=== PATIENT | male | born 1960 | race Caucasian/White ===

== ENCOUNTER 2018-10-13 20:42 | Emergency (ER) | payer OTHER, MEDICAID, SELFPAY ==
[2018-10-13 20:42] VITALS: BP 130/72; PULSE 83; RESP 15; O2SAT 96; BMI 30.4
--- NOTE | 2018-10-13 20:48 | ED_ITS ---
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 He admits to subjective fever and chills. He denies any runny nose or cough. He denies shortness of breath, nausea or vomiting. MD complaint: neck pain Onset (ago): day(s) Place: home Quality: aching Duration: constant Exacerbating factors: swallowing Associated symptoms: fever and swollen glands Treatments prior to arrival: acetaminophen and ibuprofen Related Data Home Medications Medication Instructions Recorded Confirmed [OXYCODONE] 20 mg PO SEE INSTRUCTIONS #0 05/24/11 albuterol sulfate [Proventil HFA] 2 puff INH PRN #8.5 gm 05/24/11 alprazolam [Xanax] 0.5 mg PO HS #0 05/24/11 ipratropium-albuterol 3 ml INH PRN #0 05/24/11 Previous Rx's Medication Instructions Recorded azithromycin 500 mg PO DAILY 5 Days tab 10/13/18 Allergies Allergy/AdvReac Type Severity Reaction Status Date / Time Penicillins Allergy Verified 10/13/18 20:45 Sulfa (Sulfonamide Allergy Verified 10/13/18 20:45 Antibiotics) Review of Systems Constitutional Constitutional: Denies chills, Denies fatigue, Denies fever(s), Denies frequent falls, Denies lethargy and Denies weakness Eyes Eyes: Denies change in vision, Denies eye discharge, Denies irritation and Denies loss of vision ENT Ears, Nose, Mouth, and Throat: Denies change in voice, Denies dizziness, Reports neck pain, Reports sore throat and Reports throat swelling Cardiovascular Cardiovascular: Denies chest pain, Denies irregular heart rhythm, Denies lightheadedness, Denies palpitations, Denies dyspnea, Denies dyspnea on exertion and Denies orthopnea Respiratory Respiratory: Denies cough, Denies dyspnea, Denies dyspnea on exertion and Denies wheezing Gastrointestinal Gastrointestinal: Denies abdominal pain, Denies change in bowel habits, Denies diarrhea, Denies nausea and Denies vomiting Genitourinary Genitourinary: Denies hematuria, Denies flank pain, Denies urinary incontinence and Denies urinary urgency Musculoskeletal Musculoskeletal: Denies back pain, Denies muscle weakness, Reports neck pain, Denies numbness and Denies tingling Integumentary/Breasts Skin/Breast: Denies pruritus, Denies erythema, Denies rash and Denies wounds Neurologic Neurologic: Denies behavioral changes, Denies confusion, Denies dizziness, Denies frequent falls, Denies loss of vision, Denies numbness, Denies tingling and Denies weakness Psychiatric Psychiatric: Denies anxiety, Denies behavioral changes, Denies confusion, Denies depression, Denies homicidal ideation and Denies suicidal ideation Endocrine Endocrine: Denies fatigue, Denies flushing and Denies palpitations Hematologic/Lymphatic Hematologic/Lymphatic: Denies easy bruising Allergic/Immunologic Allergic/Immunologic: Denies urticaria, Reports throat swelling and Denies wheezing PFSH Social History Smoking Status: Current every day smoker Social History Smoking Status: Current every day smoker Exam Narrative Exam Narrative: GENERAL: [58] year old patient appears stated age. Well- nourished, well-developed patient, in mild distress. Anxious HEAD: Atraumatic. Normocephalic. EYES: Pupils equal round and reactive. Extraocular motions intact. No scleral icterus. No injection or drainage. ENT: Nose without bleeding, purulent drainage. Posterior pharynx erythematous with notable exudate on the left side. Left anterior cervical lymphadenopathy. No evidence of abscess such as mass or pointing uvula. Poor dentition throughout NECK: Trachea midline. Non tender CARDIOVASCULAR: Regular rate and rhythm without murmurs, gallops, or rubs. RESPIRATORY: Clear to auscultation. Breath sounds equal bilaterally. No wheezes, rales, or rhonchi. GASTROINTESTINAL: Abdomen soft, non-tender, nondistended. EXTREMITIES: No edema or joint tenderness. BACK: Nontender without deformity or crepitance. No flank tenderness. NEURO: AOx3. SKIN: No rash or erythema of visible areas Initial Vital Signs Initial Vital Signs: Vital Signs Pulse Rate 83 10/13/18 20:42 Respiratory Rate 15 10/13/18 20:42 Blood Pressure 130/72 10/13/18 20:42 Pulse Oximetry 96 10/13/18 20:42 Course Orders Ordered: ED Orders 10/13/18 21:25 Throat Culture Stat 10/13/18 21:30 Monotest Stat Discontinued Medications Azithromycin (Zithromax) 500 mg PO NOW ONE Stop: 10/13/18 22:00 Last Admin: 10/13/18 22:26 Dose: 500 mg Documented by: DINESH Dexamethasone (Decadron) 10 mg PO NOW ONE Stop: 10/13/18 22:00 Last Admin: 10/13/18 22:26 Dose: 10 mg Documented by: DINESH Vital Signs Vital signs: Vital Signs - 8 hr 10/13/18 20:42 10/13/18 21:36 10/13/18 22:03 Pulse Rate 83 76 73 Respiratory Rate 15 18 Blood Pressure 130/72 Blood Pressure [Right Arm] 113/63 113/72 Pulse Oximetry 96 95 97 MDM - Neck Pain/Injury Lab Data Labs: Lab Results 10/13/18 Range/Units 21:30 Monoscreen Negative (Negative) Point of Care Testing Rapid Strep A Negative MDM Narrative Medical decision making narrative: Rapid strep was is normal, mono negative. High suspicion of a bacterial pharyngitis therefore patient started antibiotics and culture ordered. We have bed a number of atypical straps this summer with normal rapid strep and positive findings on culture. I did discuss this with the patient including both risks and benefits of starting antibiotics versus waiting and we sure the opinion that starting now is most appropriate Discharge Plan Departure Patient Disposition: Home Clinical Impression: Pharyngitis Qualifiers: Pharyngitis/tonsillitis etiology: unspecified etiology Qualified Code(s): J02.9 - Acute pharyngitis, unspecified Instructions: Sore Throat Activity Restrictions/Additional Instructions: *You have been diagnosed with [pharyngitis] *What to do: *Take medications as directed *Follow up with your primary care provider in 2-3 days, call for an appointment. Let them know you were seen in the Emergency Department and that we ask that you be seen in follow up *Return to ER if you should have any new, worsening or concerning symptoms Prescriptions: New azithromycin 500 mg tablet 500 mg PO DAILY 5 Days RF: 0 No Action alprazolam [Xanax] 0.5 MG tablet 0.5 mg PO HS Qty: 0 RF: 0 [OXYCODONE] 20 mg PO SEE INSTRUCTIONS Qty: 0 RF: 0 albuterol sulfate [Proventil HFA] 90 MCG/PUFF HFA aerosol inhaler 2 puff INH PRN Qty: 8.5 RF: 0 ipratropium-albuterol 3 ML solution for nebulization 3 ml INH PRN Qty: 0 RF: 0
[2018-10-13 21:36] VITALS: BP 113/63; PULSE 76; O2SAT 95
[2018-10-13 21:40] LABS: Monotest Negative (Negative)
[2018-10-13 22:03] VITALS: BP 113/72; PULSE 73; RESP 18; O2SAT 97
[2018-10-13] MEDS: DEXAMETHASONE 10 MG/ML VIAL PO (22:26)
[2018-10-13] MEDS: AZITHROMYCIN 250 MG TABLET 500 MG PO (22:26)
[2018-10-13 22:45] VITALS: BP 121/73; PULSE 75; RESP 18; O2SAT 96
[2018-10-13 23:44] VITALS: BP 119/77; PULSE 83; RESP 20; TEMP 36.5; O2SAT 97
== END 2018-10-13 23:52 | disposition home or self-care (01) ==
PROVIDERS: Emergency Provider Emergency Medicine
DX: J02.9 Acute pharyngitis, unspecified (principal)
CPT/HCPCS: 36415; 86318; 87070; 87880; 93005; 99283; 99284; J1100

== ENCOUNTER 2018-11-16 23:09 | Emergency (ER) | payer OTHER, MEDICAID, SELFPAY ==
[2018-11-16 23:09] VITALS: BP 102/72; PULSE 93; RESP 20; TEMP 37.1; O2SAT 97; BMI 31.3
[2018-11-16 23:34] VITALS: BP 111/69; PULSE 72; RESP 15; O2SAT 95
--- NOTE | 2018-11-16 23:34 | DI.CT.S_ITS ---
PROCEDURE: CT ANGIO CHEST PE PROTOCOL INDICATIONS: Hx of R side PE with similar L side pain now TECHNIQUE: After the administration of intravenous contrast, 2 mm thick sections acquired from the pulmonary apices to the posterior costophrenic angles. 3-dimensional maximum intensity projection (MIP) coronal and sagittal reformats were then acquired through the thorax. For radiation dose reduction, the following was used: automated exposure control, adjustment of mA and/or kV according to patient size. COMPARISON: [facility], CT, CT CHEST WITH CONTRAST, 05/19/2018, 7:07. [facility], CT, CT BIOPSY LUNG/MEDIASTINUM, 01/27/2018, 8:43. [facility], CT, PE STUDY (CTA CHEST), 05/24/2011, 16:15. [facility], [place], PET NECK TO MID THIGH, 02/26/2018, 14:00. [facility], CT, CT ANGIO CHEST PE, 09/16/2018, 3:43. FINDINGS: Image quality: Excellent. Pulmonary arteries: Pulmonary arteries are normal in size. There is a small eccentric filling defect demonstrated within a right lower lobe subsegmental pulmonary artery. The degree of filling defect is decreased compared to the prior study, with interval resolution of thrombus within an adjacent subsegmental pulmonary artery. The findings are suggestive of a small residual chronic thrombus. No new filling defects. No leftward deviation of the interventricular septum to suggest right heart strain. Lungs and pleura: There is progressive decrease in size of a spiculated right upper lobe nodule on series 5 image 123 measuring up to approximately 1.7 x 0.8 cm. Adjacent irregular areas of groundglass opacity in the lateral right upper lobe and the adjacent anterior right lower lobe appear slightly increased from the most recent prior study. A small pulmonary nodule in the right middle lobe on image 173 of series 5 measuring up to 4 mm appear stable compared to the prior studies dating back to 2012. Mild dependent atelectasis is demonstrated bilaterally. No pleural effusions or pneumothorax. Central and peripheral airways are patent. Mediastinum: Heart size is normal, without pericardial effusion. There is a left subclavian catheter with the tip extending into the right atrium. No mediastinal or hilar adenopathy. Thoracic aorta is normal in caliber and enhancement. Esophagus is normal in caliber, without hiatal hernia. Bones and chest wall: No suspicious bony lesions. Ribs and thoracic spine appear intact throughout. Thyroid gland demonstrates no discrete nodules. No axillary or supraclavicular adenopathy. Abdomen: Visualized upper abdomen redemonstrates a partially visualized exophytic right renal cyst. IMPRESSION: 1. Small residual eccentric filling defect within a right lower lobe lobar pulmonary artery with interval decrease in the degree of clot burden. The findings likely represent a small residual chronic thrombus. No definite new acute thrombus demonstrated. 2. Progressive decrease in size of a spiculated right upper lobe nodule compatible with patient's biopsy proven lung cancer. There are increased adjacent ground glass opacities in the right upper and lower lobes which may represent radiation pneumonitis or pneumonia. Recommend correlation clinically and attention on followup. Dictated by: Elmo Lorenzana M.D. on 11/17/2018 at 9:02 Approved by: Elmo Lorenzana M.D. on 11/17/2018 at 9:26
--- NOTE | 2018-11-16 23:35 | ED.CHESTPAIN ---
HPI - Chest Pain General Chief Complaint: Chest Pain Stated Complaint: CP Time Seen by Provider: 11/16/18 23:15 Source: patient and EMS Mode of arrival: EMS Limitations: no limitations History of Present Illness HPI narrative: Patient is a 58-year-old male with a known history of lung cancer. He is being followed by with [facility]. Patient states he is currently undergoing immunotherapy. Does not use oxygen at home. Back on 09/16/18 patient was seen at outside facility and diagnosed with bilateral lower lobe pulmonary embolisms. He is placed on a heparin drip and admitted to the hospital. He was transitioned Eliquis. Has been taking 5 mg of Eliquis b.i.d. since that time. States that earlier today he had an onset of chest discomfort and shortness of breath. He states that it felt very much like his prior pulmonary embolisms. Upon arrival to the emergency department patient states that his symptoms have improved somewhat from the onset however they are still present. Does report bilateral lower extremity swelling however this is not new. He states this comes and goes. He states he has been taking all of his medications to include the Eliquis. Related Data Home Medications Medication Instructions Recorded Confirmed [OXYCODONE] 20 mg PO SEE INSTRUCTIONS #0 05/24/11 albuterol sulfate [Proventil HFA] 2 puff INH PRN #8.5 gm 05/24/11 alprazolam [Xanax] 0.5 mg PO HS #0 05/24/11 ipratropium-albuterol 3 ml INH PRN #0 05/24/11 Previous Rx's Medication Instructions Recorded azithromycin 500 mg PO DAILY 5 Days tab 10/13/18 enoxaparin [Lovenox] 80 mg SUBCUT Q12H #8 ml 11/17/18 Allergies Allergy/AdvReac Type Severity Reaction Status Date / Time Penicillins Allergy Verified 10/13/18 20:45 Sulfa (Sulfonamide Allergy Verified 10/13/18 20:45 Antibiotics) Review of Systems Constitutional Constitutional: Denies fever(s) and Denies headache(s) ENT Ears, Nose, Mouth, and Throat: Denies headache(s) Cardiovascular Cardiovascular: Reports chest pain and Reports dyspnea Respiratory Respiratory: Reports dyspnea Gastrointestinal Gastrointestinal: Denies nausea and Denies vomiting Genitourinary Genitourinary: Denies dysuria Musculoskeletal Musculoskeletal: Denies myalgias and Denies arthralgias Integumentary/Breasts Skin/Breast: Denies lesions and Denies rash Neurologic Neurologic: Denies behavioral changes and Denies headache(s) Psychiatric Psychiatric: Denies behavioral changes Hematologic/Lymphatic Comments: On [facility] Medical History Lung cancer (Acute) Pulmonary embolism (Acute) Social History Smoking Status: Current every day smoker Social History Smoking Status: Current every day smoker Exam Initial Vital Signs Initial Vital Signs: Vital Signs Temperature 98.8 F 11/16/18 23:09 Pulse Rate 93 H 11/16/18 23:09 Respiratory Rate 20 11/16/18 23:09 Blood Pressure 102/72 11/16/18 23:09 Pulse Oximetry 97 11/16/18 23:09 Const General: cooperative, well developed, No acute distress and ill appearing Orientation: alert, awake and oriented x3 HENMT Head: normal to inspection and normocephalic Resp Effort & Inspection: no cough, no respiratory distress, no retractions and tachypneic Auscultation: clear to auscultation bilaterally Cardio Rate: regular rate Rhythm: regular rhythm Pulses: radial pulses present GI Inspection: non-distended Palpation: soft, No firm and No tender Skin Lesions: no lesions Rashes: no rashes Extrem General: normal to inspection, capillary refill normal and edema (1+ pitting edema bilateral lower extremity) Psych Appearance: grossly normal and well kempt Course Orders Ordered: ED Orders 11/16/18 23:04 EKG-12 Lead Stat 11/16/18 23:25 B Type Natriuretic Peptide Stat Complete Blood Count AUTO DIFF Stat Comprehensive Metabolic Panel Stat Lipase Stat Partial Thromboplastin Time Stat Prothrombin Time INR Stat Troponin I Stat 11/16/18 23:34 CT angio chest PE protocol Stat 11/17/18 01:30 Troponin I Stat 11/17/18 02:55 D Dimer Stat Sodium Chloride (Normal Saline 0.9%) 1,000 mls @ 150 mls/hr IV CONT PADMA Last Admin: 11/17/18 03:06 Dose: 150 mls/hr Documented by: CHARLINE Discontinued Medications Enoxaparin Sodium (Lovenox) 80 mg SUBCUT BID PADMA Enoxaparin Sodium (Lovenox) 80 mg SUBCUT NOW ONE Stop: 11/17/18 03:39 Last Admin: 11/17/18 03:46 Dose: 80 mg Documented by: CHARLINE Heparin Sodium (Porcine) (Heparin) 7,300 unit 80 unit/kg (7300 unit) IV NOW ONE Stop: 11/17/18 02:47 Last Admin: 11/17/18 03:06 Dose: Not Given Documented by: CHARLINE Heparin Sodium/Dextrose (Heparin Drip) 25,000 unit in 500 mls @ 24 mls/hr IV CONT PADMA; Protocol Vital Signs Vital signs: Vital Signs - 8 hr 11/16/18 23:09 11/16/18 23:34 11/17/18 01:50 Temperature 98.8 F Pulse Rate 93 H 72 66 Respiratory Rate 20 15 14 Blood Pressure 102/72 Blood Pressure [Right Arm] 111/69 114/74 Pulse Oximetry 97 95 95 11/17/18 03:11 Temperature Pulse Rate 69 Respiratory Rate 13 Blood Pressure Blood Pressure [Right Arm] 93/51 L Pulse Oximetry 97 MDM - Chest Pain Lab Data Attestation: I reviewed the patient's lab results. Result diagrams: 11/16/18 23:25 11/16/18 23:25 Labs: Lab Results 11/16/18 11/16/18 11/16/18 Range/Units 23:25 23:25 23:25 WBC 7.4 (4.5-11.0) X10^3/uL RBC 3.70 L (4.5-5.9) X10^6/uL Hgb 11.3 L (13.5-17.5) g/dL Hct 33.6 L (41-53) % MCV 90.8 (80-100) fL MCH 30.5 (26-34) PG MCHC 33.6 (30-36) % RDW 13.2 (11.6-14.8) % Plt Count 330 (150-400) X10^3/uL Neut % (Auto) 77.9 H (50-75) % Lymph % (Auto) 11.8 L (25-40) % Stone % (Auto) 6.7 (3-14) % Eos % (Auto) 3.3 (2-4) % Baso % (Auto) 0.3 (0-2) % Neut # (Auto) 5700 (9418-2323) /uL Lymph # (Auto) 900 L (5721-5993) /uL Stone # (Auto) 500 (0-900) /uL Eos # (Auto) 200 (0-450) /uL Baso # (Auto) 0 (0-100) /uL PT 13.3 H (10.1-12.7) SECONDS INR 1.2 (0.9-1.3) APTT 45 H (26.4-36.2) SECONDS D-Dimer (<230) ng/mL Sodium (137-145) mmol/L Potassium (3.4-5.1) mmol/L Chloride (98-107) mmol/L Carbon Dioxide (22-32) mmol/L BUN (9-20) mg/dL Creatinine (0.66-1.25) mg/dL Estimated GFR (>60) mL/min BUN/Creatinine Ratio (6-22) Glucose (70-100) mg/dL Calcium (8.4-10.2) mg/dL Total Bilirubin (0.2-1.3) mg/dL AST (17-59) IU/L ALT (21-72) IU/L Alkaline Phosphatase (38-126) U/L Troponin I (0.01-0.034) ng/mL B-Natriuretic Peptide < 100 (<100) Total Protein (6.3-8.2) g/dL Albumin (3.5-5.0) g/dL Globulin (1.7-4.1) g/dL Albumin/Globulin Ratio (1.0-2.8) Lipase 14 L (23-300) U/L 11/16/18 11/16/18 11/16/18 Range/Units 23:25 23:25 23:25 WBC (4.5-11.0) X10^3/uL RBC (4.5-5.9) X10^6/uL Hgb (13.5-17.5) g/dL Hct (41-53) % MCV (80-100) fL MCH (26-34) PG MCHC (30-36) % RDW (11.6-14.8) % Plt Count (150-400) X10^3/uL Neut % (Auto) (50-75) % Lymph % (Auto) (25-40) % Stone % (Auto) (3-14) % Eos % (Auto) (2-4) % Baso % (Auto) (0-2) % Neut # (Auto) (9951-3996) /uL Lymph # (Auto) (9594-0506) /uL Stone # (Auto) (0-900) /uL Eos # (Auto) (0-450) /uL Baso # (Auto) (0-100) /uL PT (10.1-12.7) SECONDS INR (0.9-1.3) APTT (26.4-36.2) SECONDS D-Dimer 306 H (<230) ng/mL Sodium 137 (137-145) mmol/L Potassium 4.1 (3.4-5.1) mmol/L Chloride 103 (98-107) mmol/L Carbon Dioxide 28 (22-32) mmol/L BUN 9 (9-20) mg/dL Creatinine 0.60 L (0.66-1.25) mg/dL Estimated GFR > 60.0 (>60) mL/min BUN/Creatinine Ratio 15.0 (6-22) Glucose 93 (70-100) mg/dL Calcium 9.1 (8.4-10.2) mg/dL Total Bilirubin 0.4 (0.2-1.3) mg/dL AST 23 (17-59) IU/L ALT 20 L (21-72) IU/L Alkaline Phosphatase 120 (38-126) U/L Troponin I < 0.012 (0.01-0.034) ng/mL B-Natriuretic Peptide (<100) Total Protein 6.7 (6.3-8.2) g/dL Albumin 3.9 (3.5-5.0) g/dL Globulin 2.8 (1.7-4.1) g/dL Albumin/Globulin Ratio 1.4 (1.0-2.8) Lipase (23-300) U/L 11/17/18 Range/Units 01:30 WBC (4.5-11.0) X10^3/uL RBC (4.5-5.9) X10^6/uL Hgb (13.5-17.5) g/dL Hct (41-53) % MCV (80-100) fL MCH (26-34) PG MCHC (30-36) % RDW (11.6-14.8) % Plt Count (150-400) X10^3/uL Neut % (Auto) (50-75) % Lymph % (Auto) (25-40) % Stone % (Auto) (3-14) % Eos % (Auto) (2-4) % Baso % (Auto) (0-2) % Neut # (Auto) (6331-0668) /uL Lymph # (Auto) (0221-1984) /uL Stone # (Auto) (0-900) /uL Eos # (Auto) (0-450) /uL Baso # (Auto) (0-100) /uL PT (10.1-12.7) SECONDS INR (0.9-1.3) APTT (26.4-36.2) SECONDS D-Dimer (<230) ng/mL Sodium (137-145) mmol/L Potassium (3.4-5.1) mmol/L Chloride (98-107) mmol/L Carbon Dioxide (22-32) mmol/L BUN (9-20) mg/dL Creatinine (0.66-1.25) mg/dL Estimated GFR (>60) mL/min BUN/Creatinine Ratio (6-22) Glucose (70-100) mg/dL Calcium (8.4-10.2) mg/dL Total Bilirubin (0.2-1.3) mg/dL AST (17-59) IU/L ALT (21-72) IU/L Alkaline Phosphatase (38-126) U/L Troponin I < 0.012 (0.01-0.034) ng/mL B-Natriuretic Peptide (<100) Total Protein (6.3-8.2) g/dL Albumin (3.5-5.0) g/dL Globulin (1.7-4.1) g/dL Albumin/Globulin Ratio (1.0-2.8) Lipase (23-300) U/L Imaging Data CT scan - chest: Radiologist's impression: Positive study for pulmonary embolism involving a pulmonary arterial branch of the right lower lobe. No evidence of left-sided pulmonary embolism. No evidence of saddle embolism. Focal airspace disease in right upper lobe which represents atelectasis versus infiltrate. Short-term follow-up CT chest in 2-4 weeks is advised ECG Data Attestation: I personally reviewed and interpreted this ECG as follows: Prior ECG tracings: not available for review Interpretation: Sinus rhythm Ventricular rate 83 Normal axis Normal QRS Normal QTC No ST T wave changes MDM Narrative Medical decision making narrative: I was able to review patient's admission records from prior hospitalization were is diagnosed with bilateral pulmonary embolisms. The does say in those records that palliative care did evaluate the patient during that stay. When asked the patient about this he stated that the only change to the current plan was some change in medications. He has been taking the Eliquis 5 mg 2 times a day since discharge from that visit. During his time here in the emergency department patient states that his symptoms have greatly improved if not resolved. He is no longer having chest pain or shortness of breath. He feels that his respiratory status is back to baseline. We were able to locate the patient's prior CT scan and send it to the radiologist to review. There was an addendum made to the current CTA which stated that the clot currently seen in his right lower lobe segmental branch was not present on the prior study. There is also mention that the age of the clot seen on today's exam is indeterminate. Also notes that the pulmonary embolisms that were noted on the prior exam are no longer present on today's exam. Patient is not tachycardic, not hypoxic, not tachypneic, troponin is negative x2. BNP unremarkable. The lower extremity swelling is not new per the patient. Discussed the case with Dr. Gutierrez who is on-call for the patient's primary oncologist who recommended checking a D-dimer. He stated that if the D-dimer was negative was unlikely that the patient's current finding was a new pulmonary embolism. He also recommended that the patient's D-dimer was positive that we should switch him from Eliquis to Lovenox. Patient's D-dimer did come back elevated for our lab reference values. He was given a dose of 80 mg of Lovenox in the emergency department and provided instructions on how to administer this medication. Was sent home with a prescription of 80 mg b.i.d.. Patient was also informed that he can stop the Eliquis because we have changed his medication. He was also instructed he needed contact his oncologist yamelorrow for follow-up in for outpatient ultrasounds. Dr. Gutierrez stated that he would also let Dr. Florentino who is the patient's primary oncologist no about the ED visit. Patient is stable. Not hypoxic, not tachypneic, not hypotensive. Patient expressed understanding and agreement plan. Discharge Plan Departure Patient Disposition: Home Clinical Impression: Pulmonary embolism Qualifiers: Pulmonary embolism type: unspecified Chronicity: unspecified Acute cor pulmonale presence: without acute cor pulmonale Qualified Code(s): I26.99 - Other pulmonary embolism without acute cor pulmonale Instructions: DI for Pulmonary Embolism Activity Restrictions/Additional Instructions: You can stop taking the Eliquis and start taking the Lovenox as directed. Later today Saturday11/17/[address] Florentino to discuss your diagnosis today and further evaluation and treatment. Please return to the emergency department for any new or worsening symptoms Prescriptions: New enoxaparin [Lovenox] 80 mg/0.8 mL syringe 80 mg SUBCUT Q12H Qty: 8 RF: 6 No Action alprazolam [Xanax] 0.5 MG tablet 0.5 mg PO HS Qty: 0 RF: 0 [OXYCODONE] 20 mg PO SEE INSTRUCTIONS Qty: 0 RF: 0 albuterol sulfate [Proventil HFA] 90 MCG/PUFF HFA aerosol inhaler 2 puff INH PRN Qty: 8.5 RF: 0 ipratropium-albuterol 3 ML solution for nebulization 3 ml INH PRN Qty: 0 RF: 0 azithromycin 500 mg tablet 500 mg PO DAILY 5 Days RF: 0
[2018-11-16 23:44] LABS: Add Manual Diff / Slide Review NO; Basophils Absolute Auto 0 /uL (0-100); Basophils Percent Auto 0.3 % (0-2); Eosinophils Absolute Auto 200 /uL (0-450); Eosinophils Percent Auto 3.3 % (2-4); Hematocrit 33.6 % (41-53); Hemoglobin 11.3 g/dL (13.5-17.5); Lymphocytes Absolute Auto 900 /uL (1100-4500); Lymphocytes Percent Auto 11.8 % (25-40); Mean Corpuscular HGB Conc 33.6 % (30-36); Mean Corpuscular Hemoglobin 30.5 PG (26-34); Mean Corpuscular Volume 90.8 fL (80-100); Monocytes Absolute Auto 500 /uL (0-900); Monocytes Percent Auto 6.7 % (3-14); Neutrophils Absolute Auto 5700 /uL (1500-7000); Neutrophils Percent Auto 77.9 % (50-75); Platelet Count 330 X10^3/uL (150-400); Red Cell Distribution Width 13.2 % (11.6-14.8); White Blood Cell Count 7.4 X10^3/uL (4.5-11.0)
[2018-11-16 23:45] LABS: INR 1.2 (0.9-1.3); Prothrombin Time 13.3 SECONDS (10.1-12.7)
[2018-11-16 23:48] LABS: PTT Partial Thromboplastin Tim 45 SECONDS (26.4-36.2)
[2018-11-16 23:51] LABS: Lipase 14 U/L (23-300)
[2018-11-16 23:53] LABS: Alanine Aminotransferase 20 IU/L (21-72); Albumin 3.9 g/dL (3.5-5.0); Albumin Globulin Ratio 1.4 (1.0-2.8); Alkaline Phosphatase 120 U/L (38-126); Aspartate Aminotransferase 23 IU/L (17-59); Bilirubin Total 0.4 mg/dL (0.2-1.3); Blood Urea Nitrogen 9 mg/dL (9-20); Calcium 9.1 mg/dL (8.4-10.2); Carbon Dioxide 28 mmol/L (22-32); Chloride 103 mmol/L (98-107); Estimated Glomerular Filt Rate > 60.0 mL/min (>60); Globulin 2.8 g/dL (1.7-4.1); Glucose 93 mg/dL (70-100); HEMOLYSIS < 15 (0-50); Potassium 4.1 mmol/L (3.4-5.1); Sodium 137 mmol/L (137-145); Total Protein 6.7 g/dL (6.3-8.2)
[2018-11-17 00:04] LABS: Troponin I < 0.012 ng/mL (0.01-0.034)
[2018-11-17 00:11] LABS: B Type Natriuretic Peptide < 100 (<100)
[2018-11-17 01:50] VITALS: BP 114/74; PULSE 66; RESP 14; O2SAT 95
[2018-11-17 02:00] LABS: Troponin I < 0.012 ng/mL (0.01-0.034)
[2018-11-17] MEDS: SODIUM CHLORIDE 0.9% 1,000 ML 150 ML IV (03:06)
[2018-11-17 03:11] VITALS: BP 93/51; PULSE 69; RESP 13; O2SAT 97
[2018-11-17 03:24] LABS: D Dimer 306 ng/mL (<230)
[2018-11-17] MEDS: ENOXAPARIN 80 MG/0.8 ML SYRINGE SUBCUT (03:46)
[2018-11-17] MEDS: ONDANSETRON 4 MG/2 ML INJ IV (05:14)
[2018-11-17] MEDS: ALBUTEROL 2.5 MG/3 ML NEB (ADULT) INH (05:26)
[2018-11-17 05:27] VITALS: PULSE 82; RESP 16; O2SAT 96
[2018-11-17] MEDS: ONDANSETRON 4 MG ODT SL (06:14)
[2018-11-17] MEDS: LORazepam 0.5 MG TABLET 1 MG PO (06:14)
[2018-11-17] MEDS: MAG HYDROX/ALUM/SIMETH 30 ML UDC PO (06:14)
--- NOTE | 2018-11-17 06:47 | PC.NURSE ---
Pt asked me to phone his to ask if she can come and pick him up. I spoke to her on the phone, but she said that she has no way to get here and that there is no one else I can call for a ride. Pt states he has no money for a taxi but he uses [facility] for patient tranport to/from appointments and perhaps they can take him home. Currently working on medicare taxi.
== END 2018-11-17 07:40 | disposition home or self-care (01) ==
PROVIDERS: Emergency Provider Emergency Medicine
DX: I26.99 Other pulmonary embolism without acute cor pulmonale (principal); Z79.01 Long term (current) use of anticoagulants
CPT/HCPCS: 36415; 71275; 80053; 83690; 83880; 84484; 85025; 85379; 85610; 85730; 93005; 94640; 96361; 96372; 96374; 99283; 99285; J1642; J1650; J2405; J7613; Q9967

== ENCOUNTER 2019-01-23 20:51 | Emergency (ER) | payer OTHER, MEDICAID, SELFPAY ==
[2019-01-23 21:04] VITALS: BP 133/84; PULSE 85; RESP 16; TEMP 36.6; O2SAT 98; BMI 30.4
--- NOTE | 2019-01-23 21:23 | DI.RAD.S_ITS ---
PROCEDURE: XR CHEST 1V INDICATIONS: Chest pain TECHNIQUE: One view of the chest was acquired. COMPARISON: None. FINDINGS: Surgical changes and devices: Left-sided Port-A-Cath tip is in SVC/right atrium. Fixation hardware in lower cervical spine is seen. Lungs and pleura: Lungs are clear. No pleural effusions or pneumothorax. Mediastinum: Mediastinal contours appear normal. Heart size is normal. Bones and chest wall: No suspicious bony lesions. Overlying soft tissues appear unremarkable. IMPRESSION: No acute cardiopulmonary pathology. Dictated by: Davion Clifford M.D. on 01/23/2019 at 21:57 Approved by: Davoin Clifford M.D. on 01/23/2019 at 21:58
[2019-01-23] MEDS: SODIUM CHLORIDE 0.9% 1,000 ML 150 ML IV (21:30)
[2019-01-23 21:32] LABS: Add Manual Diff / Slide Review NO; Basophils Absolute Auto 100 /uL (0-100); Basophils Percent Auto 0.6 % (0-2); Eosinophils Absolute Auto 200 /uL (0-450); Eosinophils Percent Auto 1.9 % (2-4); Hematocrit 36.4 % (41-53); Hemoglobin 12.2 g/dL (13.5-17.5); Lymphocytes Absolute Auto 1200 /uL (1100-4500); Lymphocytes Percent Auto 10.8 % (25-40); Mean Corpuscular HGB Conc 33.5 % (30-36); Mean Corpuscular Hemoglobin 29.5 PG (26-34); Monocytes Absolute Auto 800 /uL (0-900); Monocytes Percent Auto 7.2 % (3-14); Neutrophils Absolute Auto 8500 /uL (1500-7000); Neutrophils Percent Auto 79.5 % (50-75); Platelet Count 389 X10^3/uL (150-400); Red Blood Cell Count 4.13 X10^6/uL (4.5-5.9); Red Cell Distribution Width 14.1 % (11.6-14.8); White Blood Cell Count 10.7 X10^3/uL (4.5-11.0)
[2019-01-23 21:37] LABS: Alanine Aminotransferase 26 IU/L (<50); Albumin 4.1 g/dL (3.5-5.0); Albumin Globulin Ratio 1.5 (1.0-2.8); Alkaline Phosphatase 112 U/L (38-126); Aspartate Aminotransferase 25 IU/L (17-59); BUN Creatinine Ratio 26.7 (6-22); Bilirubin Total 0.3 mg/dL (0.2-1.3); Blood Urea Nitrogen 16 mg/dL (9-20); Calcium 9.3 mg/dL (8.4-10.2); Carbon Dioxide 30 mmol/L (22-32); Chloride 98 mmol/L (98-107); Creatine Kinase 43 U/L (55-170); Estimated Glomerular Filt Rate > 60.0 mL/min (>60); Globulin 2.7 g/dL (1.7-4.1); Glucose 99 mg/dL (70-100); HEMOLYSIS < 15 (0-50); Lipase 29 U/L (23-300); Potassium 4.5 mmol/L (3.4-5.1); Sodium 134 mmol/L (137-145); Total Protein 6.8 g/dL (6.3-8.2)
[2019-01-23 21:39] VITALS: BP 119/71; PULSE 70; RESP 12; O2SAT 98
[2019-01-23 21:49] LABS: Troponin I < 0.012 ng/mL (0.01-0.034)
--- NOTE | 2019-01-23 22:09 | ED.CHESTPAIN ---
HPI - Chest Pain General Chief Complaint: Chest Pain Stated Complaint: Chest discomfort Time Seen by Provider: 01/23/19 21:32 Source: patient Mode of arrival: EMS Limitations: no limitations History of Present Illness HPI narrative: 58-year-old male with a history of lung cancer. Is currently undergoing chemotherapy. Is also currently on Levaquin for a presumed pneumonia provided by his primary provider. He was switched to Levaquin within the past 24 hours after being on doxycycline for a short period of time and not improving. He also has a history of 2 pulmonary embolism. The 2nd 1 was when he was on Eliquis. He is currently doing Lovenox. Comes emergency department today for retrosternal chest pain. Describes it as a pressure. Is non radiating. Not worse with palpation or movement. States he does not have a change in his breathing status. He states this feels slightly different than his prior diagnosis of pulmonary embolisms however he does admit that he does not remember what exactly that felt like. No swelling in his legs. No productive cough. He did take a Xanax and pain medication prior to arrival Related Data Home Medications Medication Instructions Recorded Confirmed albuterol sulfate [Proventil HFA] 2 puff INH PRN PRN #8.5 gm 05/24/11 01/23/19 alprazolam [Xanax] 1 mg PO HS #0 05/24/11 01/23/19 ipratropium-albuterol 3 ml INH PRN #0 05/24/11 01/23/19 benzonatate 100 mg PO TID 01/23/19 01/23/19 budesonide-formoterol [Symbicort] 2 puff INHALATION BID 01/23/19 01/23/19 durvalumab 50 mg IV SEEINSTR 01/23/19 01/23/19 lamotrigine 200 mg PO BID 01/23/19 01/23/19 lithium carbonate 450 mg PO BID 01/23/19 01/23/19 lorazepam 0.5 mg PO DAILY PRN 01/23/19 01/23/19 methadone 25 mg PO TID 01/23/19 01/23/19 ondansetron 8 mg PO Q8HR PRN 01/23/19 01/23/19 pantoprazole 40 mg PO DAILY 01/23/19 01/23/19 prazosin 1 mg PO DAILY 01/23/19 01/23/19 primidone 200 mg PO DAILY 01/23/19 01/23/19 quetiapine 100 mg PO BID 01/23/19 01/23/19 sertraline 100 mg PO DAILY 01/23/19 01/23/19 sucralfate 1 g PO QID 01/23/19 01/23/19 Previous Rx's Medication Instructions Recorded enoxaparin [Lovenox] 80 mg SUBCUT Q12H #8 ml 11/17/18 Allergies Allergy/AdvReac Type Severity Reaction Status Date / Time Penicillins Allergy Verified 01/23/19 23:34 Sulfa (Sulfonamide Allergy Verified 01/23/19 23:34 Antibiotics) Review of Systems Constitutional Constitutional: Denies fever(s) Cardiovascular Cardiovascular: Reports chest pain, Denies pedal edema, Denies edema and Denies dyspnea Respiratory Respiratory: Denies cough and Denies dyspnea Gastrointestinal Gastrointestinal: Denies abdominal pain, Denies nausea and Denies vomiting Genitourinary Genitourinary: Denies dysuria Musculoskeletal Musculoskeletal: Denies myalgias and Denies arthralgias Integumentary/Breasts Skin/Breast: Denies lesions and Denies rash Neurologic Neurologic: Denies behavioral changes Psychiatric Psychiatric: Denies behavioral changes Hematologic/Lymphatic Hematologic/Lymphatic: Denies easy bleeding and Denies easy bruising Patient History Medical History Lung cancer (Acute) Pulmonary embolism (Acute) Social History Smoking Status: Current every day smoker Smoking Status: Current every day smoker alcohol intake frequency: 0-2 drinks per day Substance Use Type: does not use Exam Initial Vital Signs Initial Vital Signs: Vital Signs Temperature 97.9 F 01/23/19 21:04 Pulse Rate 85 01/23/19 21:04 Respiratory Rate 16 01/23/19 21:04 Blood Pressure 133/84 01/23/19 21:04 Pulse Oximetry 98 01/23/19 21:04 Const General: cooperative and comfortable Orientation: alert, awake and oriented x3 HENMT Head: normal to inspection and normocephalic Chest Chest: normal inspection of the chest, No crepitus and No tenderness Resp Effort & Inspection: normal respiratory effort Auscultation: clear to auscultation bilaterally Cardio Rate: regular rate Rhythm: regular rhythm Pulses: radial pulses present GI Inspection: non-distended Palpation: soft, No firm and No tender Back/Spine/Pelvis Back: No CVA tenderness Skin Lesions: no lesions Rashes: no rashes Neuro General: alert, awake and oriented x3 Cognition: normal cognition Speech: speech normal Extrem General: normal to inspection, capillary refill normal and No edema Psych Appearance: grossly normal and well kempt Course Orders Ordered: ED Orders 01/23/19 21:05 EKG-12 Lead Routine 01/23/19 21:10 B Type Natriuretic Peptide Stat Complete Blood Count AUTO DIFF Stat Comprehensive Metabolic Panel Stat Lipase Stat Troponin & CK Cardiac Panel Stat 01/23/19 21:23 XR chest 1V Stat 01/23/19 22:18 CT angio chest PE protocol Stat 01/23/19 22:47 Urinalysis and Microscopic Stat 01/24/19 00:00 Troponin I Stat Discontinued Medications Sodium Chloride (Normal Saline 0.9%) 1,000 mls @ 150 mls/hr IV CONT PADMA Last Infusion: 01/24/19 00:55 Dose: 0 mls/hr Documented by: Admin: 01/23/19 21:30 Dose: 150 mls/hr Documented by: DINESH Lorazepam (Ativan) 1 mg IV NOW ONE Stop: 01/23/19 22:47 Last Admin: 01/23/19 22:53 Dose: 1 mg Documented by: DINESH Vital Signs Vital signs: Vital Signs - 8 hr 01/23/19 21:04 01/23/19 21:39 01/23/19 22:38 Temperature 97.9 F Pulse Rate 85 70 73 Respiratory Rate 16 12 20 Blood Pressure 133/84 Blood Pressure [Right Arm] 119/71 130/78 Pulse Oximetry 98 98 96 01/24/19 00:36 Temperature Pulse Rate 71 Respiratory Rate 17 Blood Pressure Blood Pressure [Right Arm] 149/92 H Pulse Oximetry 96 MDM - Chest Pain Medical Records Data Attestation: I reviewed the patient's medical records. Lab Data Attestation: I reviewed the patient's lab results. Result diagrams: 01/23/19 21:10 01/23/19 21:10 Labs: Lab Results 01/23/19 01/23/19 01/23/19 Range/Units 21:10 21:10 21:10 WBC 10.7 (4.5-11.0) X10^3/uL RBC 4.13 L (4.5-5.9) X10^6/uL Hgb 12.2 L (13.5-17.5) g/dL Hct 36.4 L (41-53) % MCV 88.0 (80-100) fL MCH 29.5 (26-34) PG MCHC 33.5 (30-36) % RDW 14.1 (11.6-14.8) % Plt Count 389 (150-400) X10^3/uL Neut % (Auto) 79.5 H (50-75) % Lymph % (Auto) 10.8 L (25-40) % [place] % (Auto) 7.2 (3-14) % Eos % (Auto) 1.9 L (2-4) % Baso % (Auto) 0.6 (0-2) % Neut # (Auto) 8500 H (9528-1783) /uL Lymph # (Auto) 1200 (2121-6706) /uL [place] # (Auto) 800 (0-900) /uL Eos # (Auto) 200 (0-450) /uL Baso # (Auto) 100 (0-100) /uL Sodium 134 L (137-145) mmol/L Potassium 4.5 (3.4-5.1) mmol/L Chloride 98 (98-107) mmol/L Carbon Dioxide 30 (22-32) mmol/L BUN 16 (9-20) mg/dL Creatinine 0.60 L (0.66-1.25) mg/dL Estimated GFR > 60.0 (>60) mL/min BUN/Creatinine Ratio 26.7 H (6-22) Glucose 99 (70-100) mg/dL Calcium 9.3 (8.4-10.2) mg/dL Total Bilirubin 0.3 (0.2-1.3) mg/dL AST 25 (17-59) IU/L ALT 26 (<50) IU/L Alkaline Phosphatase 112 (38-126) U/L Total Creatine Kinase 43 L (55-170) U/L CK-MB (CK-2) TNP CK-MB (CK-2) Rel Index TNP Troponin I < 0.012 (0.01-0.034) ng/mL B-Natriuretic Peptide < 100 (<100) Total Protein 6.8 (6.3-8.2) g/dL Albumin 4.1 (3.5-5.0) g/dL Globulin 2.7 (1.7-4.1) g/dL Albumin/Globulin Ratio 1.5 (1.0-2.8) Lipase 29 (23-300) U/L Urine Color Urine Appearance Urine pH (4.5-8.0) Ur Specific Pierce (1.000-1.035) Urine Protein (Negative) Urine Glucose (UA) (Negative) g/dL Urine Ketones (NEGATIVE) Urine Occult Blood (Negative) Urine Nitrate (Negative) Urine Bilirubin (NEGATIVE) Urine Urobilinogen (0.2) E.U./dL Ur Leukocyte Esterase (NEGATIVE) Urine RBC (0-5/HPF) Urine WBC (0-5/HPF) Urine Bacteria (None) Ur Culture Indicated? Micro UA Comment 01/23/19 01/24/19 Range/Units 22:47 00:00 WBC (4.5-11.0) X10^3/uL RBC (4.5-5.9) X10^6/uL Hgb (13.5-17.5) g/dL Hct (41-53) % MCV (80-100) fL MCH (26-34) PG MCHC (30-36) % RDW (11.6-14.8) % Plt Count (150-400) X10^3/uL Neut % (Auto) (50-75) % Lymph % (Auto) (25-40) % [place] % (Auto) (3-14) % Eos % (Auto) (2-4) % Baso % (Auto) (0-2) % Neut # (Auto) (8766-7178) /uL Lymph # (Auto) (9794-4273) /uL [place] # (Auto) (0-900) /uL Eos # (Auto) (0-450) /uL Baso # (Auto) (0-100) /uL Sodium (137-145) mmol/L Potassium (3.4-5.1) mmol/L Chloride (98-107) mmol/L Carbon Dioxide (22-32) mmol/L BUN (9-20) mg/dL Creatinine (0.66-1.25) mg/dL Estimated GFR (>60) mL/min BUN/Creatinine Ratio (6-22) Glucose (70-100) mg/dL Calcium (8.4-10.2) mg/dL Total Bilirubin (0.2-1.3) mg/dL AST (17-59) IU/L ALT (<50) IU/L Alkaline Phosphatase (38-126) U/L Total Creatine Kinase (55-170) U/L CK-MB (CK-2) CK-MB (CK-2) Rel Index Troponin I < 0.012 (0.01-0.034) ng/mL B-Natriuretic Peptide (<100) Total Protein (6.3-8.2) g/dL Albumin (3.5-5.0) g/dL Globulin (1.7-4.1) g/dL Albumin/Globulin Ratio (1.0-2.8) Lipase (23-300) U/L Urine Color Yellow Urine Appearance Clear Urine pH 7.0 (4.5-8.0) Ur Specific Pierce <=1.005 (1.000-1.035) Urine Protein Negative (Negative) Urine Glucose (UA) Negative (Negative) g/dL Urine Ketones Negative (NEGATIVE) Urine Occult Blood Negative (Negative) Urine Nitrate Negative (Negative) Urine Bilirubin Negative (NEGATIVE) Urine Urobilinogen 0.2 (0.2) E.U./dL Ur Leukocyte Esterase Negative (NEGATIVE) Urine RBC None seen (0-5/HPF) Urine WBC None seen (0-5/HPF) Urine Bacteria None seen (None) Ur Culture Indicated? Cult not indicated Micro UA Comment Microscopic normal Imaging Data Chest x-ray: Radiologist's impression: [address] [address] XRay Report Signed Patient: Vladislav Cruz#: [id number] : 1960Acct:[id number] Age/Sex: 58 / MDate of Service: 01/23/19 Loc: ED Accession Number: [id number] Procedure: XR chest 1V Ordering Provider: Ravi Mac D.O. PROCEDURE: XR CHEST 1V INDICATIONS: Chest pain TECHNIQUE: One view of the chest was acquired. COMPARISON: None. FINDINGS: Surgical changes and devices: Left-sided Port-A-Cath tip is in SVC/right atrium. Fixation hardware in lower cervical spine is seen. Lungs and pleura: Lungs are clear. No pleural effusions or pneumothorax. Mediastinum: Mediastinal contours appear normal. Heart size is normal. Bones and chest wall: No suspicious bony lesions. Overlying soft tissues appear unremarkable. IMPRESSION: No acute cardiopulmonary pathology. Dictated by: Davion Clifford M.D. on 01/23/2019 at 21:57 Approved by: Davion Clifford M.D. on 01/23/2019 at 21:58 CT scan - chest: Radiologist's impression: No evidence of pulmonary embolism. There is interval resolution of previously seen pulmonary embolism within the right lower lobe pulmonary artery. Focal area of nodular consolidation was surrounding ground-glass in the lateral right upper lobe. Appearance is similar to prior imaging dated 11/17/2018 and is suggestive of radiation pneumonitis or chronic inflammatory process. Of note there is increased sclerosis within the vertebral bodies at this level again suggestive of radiation pneumonitis. Underlying nodule appears stable from prior imaging. Mild emphysema with mild bronchial wall thickening suggesting of smoking related lung injury ECG Data Attestation: I personally reviewed and interpreted this ECG as follows: Prior ECG tracings: not available for review Interpretation: Sinus rhythm Ventricular rate is 68 Normal axis Normal QRS Normal QTC No ST T wave changes MDM Narrative Medical decision making narrative: Patient's CT scan shows no signs of pulmonary embolism. His EKG is unremarkable. His troponins are negative x2 with a cycle in being greater than 6 hours after the onset of his symptoms. No fevers. He is currently being treated for pneumonia from his primary provider. I did inform him that he should continue this treatment despite not having definitive pneumonia on his radiologic studies today. He is going to continue his Lovenox. Do suspect a component of anxiety to his symptoms based on the history and physical. Will hold on further workup for now. Patient was given return precautions and follow-up instructions. He expressed understanding and agreement with plan. Discharge Plan Departure Patient Disposition: Home Clinical Impression: Atypical chest pain Discharge Date/Time: 01/24/19 00:57 Instructions: DI for Atypical Chest Pain Activity Restrictions/Additional Instructions: Recommend that you continue all of your medications as directed. On Saturday contact your primary provider for a follow-up. Return to the emergency department for any new or worsening symptoms Prescriptions: No Action alprazolam [Xanax] 0.5 MG tablet 1 mg PO HS Qty: 0 RF: 0 albuterol sulfate [Proventil HFA] 90 MCG/PUFF HFA aerosol inhaler 2 puff INH PRN PRN (Reason: Shortness Of Breath) Qty: 8.5 RF: 0 ipratropium-albuterol 3 ML solution for nebulization 3 ml INH PRN Qty: 0 RF: 0 enoxaparin [Lovenox] 80 mg/0.8 mL syringe 80 mg SUBCUT Q12H Qty: 8 RF: 6 primidone 50 mg tablet 200 mg PO DAILY RF: 0 lamotrigine 200 mg tablet 200 mg PO BID RF: 0 prazosin 1 mg capsule 1 mg PO DAILY RF: 0 sucralfate 1 gram tablet 1 g PO QID RF: 0 sertraline 100 mg tablet 100 mg PO DAILY RF: 0 lithium carbonate 150 mg capsule 450 mg PO BID RF: 0 ondansetron 8 mg tablet,disintegrating 8 mg PO Q8HR PRN (Reason: Nausea) RF: 0 lorazepam 0.5 mg tablet 0.5 mg PO DAILY PRN (Reason: Anxiety) RF: 0 benzonatate 100 mg capsule 100 mg PO TID RF: 0 pantoprazole 40 mg tablet,delayed release (DR/EC) 40 mg PO DAILY RF: 0 quetiapine 50 mg tablet 100 mg PO BID RF: 0 Symbicort 80-4.5 mcg/actuation HFA aerosol inhaler 2 puff INHALATION BID RF: 0 durvalumab 50 mg/mL Solution 50 mg IV SEEINSTR RF: 0 methadone 10 mg tablet 25 mg PO TID RF: 0
--- NOTE | 2019-01-23 22:18 | DI.CT.S_ITS ---
PROCEDURE: CT ANGIO CHEST PE PROTOCOL INDICATIONS: History of pulmonary embolisms with chest pain TECHNIQUE: After the administration of intravenous contrast, 2 mm thick sections acquired from the pulmonary apices to the posterior costophrenic angles. 3-dimensional maximum intensity projection (MIP) coronal and sagittal reformats were then acquired through the thorax. For radiation dose reduction, the following was used: automated exposure control, adjustment of mA and/or kV according to patient size. COMPARISON: [facility], CR, XR INTRAOPERATIVE PICC PORT PLACEMENT, 04/10/2018, 11:41. [facility], CT, CT ANGIO CHEST PE PROTOCOL, 11/17/2018, 0:01. FINDINGS: Image quality: Excellent. Pulmonary arteries: Pulmonary arteries are normal in size, and demonstrate no intraluminal filling defects to suggest central pulmonary embolism. The previously visualized nonocclusive thrombus within a segmental branch of the right lower lobe has resolved. Lungs and pleura: Spiculated mass is redemonstrated within the lateral aspect of the right upper lobe, unchanged from the CT dated 11/17/18. As before, patchy airspace opacities throughout this pulmonary mass. The degree of surrounding air space opacities are slightly decreased when compared with the prior study. No new pulmonary opacities. No pleural effusion or pneumothorax. There is mild centrilobular emphysema with an apical predominance. Mediastinum: Heart size is normal, without pericardial effusion. No mediastinal or hilar adenopathy. Thoracic aorta is normal in caliber and enhancement. Scattered atheromatous calcifications are present within the aortic arch. Esophagus is normal in caliber, without hiatal hernia. Bones and chest wall: No suspicious bony lesions. Ribs and thoracic spine appear intact throughout. Thyroid gland is unremarkable. No axillary or supraclavicular adenopathy. Abdomen: Visualized upper abdominal solid organs appear normal in the early arterial phase of enhancement. IMPRESSION: 1. No acute pulmonary embolus. Resolution of the nonocclusive thrombus within a segmental branch of the right lower lobe pulmonary artery. 2. Stable right upper lobe spiculated mass consistent with given history of lung cancer. These findings are concordant with the overnight interpretation. Dictated by: Alexia Gil M.D. on 01/24/2019 at 7:09 Approved by: Alexia Gil M.D. on 01/24/2019 at 7:16
[2019-01-23 22:38] VITALS: BP 130/78; PULSE 73; RESP 20; O2SAT 96
[2019-01-23 22:49] LABS: Bacteria Urine None Seen; RBC Urine None Seen (0-5/HPF); WBC Urine None Seen (0-5/HPF)
[2019-01-23 22:50] LABS: Appearance Urine UA CLEAR; Bilirubin Urine UA NEGATIVE (NEGATIVE); Color Urine UA YELLOW; Glucose Urine UA NEGATIVE (Negative); Ketones Urine UA NEGATIVE (NEGATIVE); Leukocyte Esterase Urine UA NEGATIVE (NEGATIVE); Nitrite Urine UA NEGATIVE (Negative); Occult Blood Urine UA NEGATIVE (Negative); Protein Urine UA NEGATIVE (Negative); Specific Gravity Urine UA <=1.005 (1.000-1.035); Urobilinogen Urine UA 0.2 E.U./dL (0.2)
[2019-01-23] MEDS: LORazepam 2 MG/ML INJ 1 MG IV (22:53)
[2019-01-23 22:56] LABS: Culture Indicated Urine Cult Not Indicated; Urine Comments Microscopic Normal
[2019-01-24 00:18] LABS: B Type Natriuretic Peptide < 100 (<100)
[2019-01-24 00:28] LABS: Troponin I < 0.012 ng/mL (0.01-0.034)
[2019-01-24 00:36] VITALS: BP 149/92; PULSE 71; RESP 17; O2SAT 96
--- NOTE | 2019-01-24 01:07 | PC.NURSE ---
Called Deisi Rojas for cab to [place] using his medicaid. Deisi rojas no longer has a car in [facility] but states there is a possiblitily that they may have a car and will call us back . Pt in [place],updated him on the status. 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
== END 2019-01-24 00:57 | disposition home or self-care (01) ==
PROVIDERS: Emergency Provider Emergency Medicine
DX: R07.89 Other chest pain (principal)
CPT/HCPCS: 36415; 71045; 71275; 80053; 81001; 82550; 83690; 83880; 84484; 85025; 93005; 93010; 96374; 99284; 99285; J1642; J2060; Q9967

== ENCOUNTER 2021-05-31 03:06 | Observation (INO) | payer MEDICARE, MEDICAID, SELFPAY ==
[2021-05-31] VITALS (10 sets, daily range): BP systolic 130–184; BP diastolic 65–94; PULSE 75–99; RESP 11–20; TEMP 36.3–36.9; O2SAT 95–100
--- NOTE | 2021-05-31 03:10 | DI.RAD.S_ITS ---
PROCEDURE: XR FINGER LT MIN 2V INDICATIONS: foreign body TECHNIQUE: PA hand, 3 views of the index finger acquired. COMPARISON: None. FINDINGS: Bones: Metallic foreign body (nail) is seen that appears to be traversing the base and midportion of the 2nd distal phalanx. No definite involvement of the distal interphalangeal joint space is seen. No suspicious bony lesions. Soft tissues: No suspicious soft tissue calcifications. Soft tissue edema is seen in the distal 2nd finger surrounding the metallic foreign body. IMPRESSION: Metallic foreign body is seen extending through the distal index finger that appears to be traversing the mid to basilar portion of the 2nd distal phalanx without definite involvement of the distal interphalangeal joint. Recommend correlation with post extraction radiographs. Dictated by: Tyson Loja M.D. on 05/31/2021 at 8:25 Approved by: Tyson Loja M.D. on 05/31/2021 at 8:30
--- NOTE | 2021-05-31 03:12 | ED_ITS ---
HPI - Extremity Injury (Upper) General Chief Complaint: Skin/Abscess/Foreign Body Stated Complaint: nail in left finger Time Seen by Provider: 05/31/21 03:09 History of Present Illness HPI narrative: 60-year-old male daily smoker presents with an injury to his left index finger a few hours ago. He was working on a project at home and accidentally ran a large nail through the tip of his left finger. His tetanus will need to be updated today. He has pain but denies any numbness or tingling. He is otherwise well and free of complaint Related Data Home Medications Medication Instructions Recorded Confirmed albuterol sulfate 90 mcg/actuation 2 puff INH PRN PRN #8.5 gm 05/24/11 01/23/19 aerosol inhaler (Proventil HFA) alprazolam 0.5 mg tablet (Xanax) 1 mg PO HS #0 05/24/11 01/23/19 ipratropium 0.5 mg-albuterol 3 mg 3 ml INH PRN #0 05/24/11 01/23/19 (2.5 mg base)/3 mL nebulization soln benzonatate 100 mg capsule 100 mg PO TID 01/23/19 01/23/19 budesonide-formoterol HFA 80 2 puff INHALATION BID 01/23/19 01/23/19 mcg-4.5 mcg/actuation aerosol inhaler (Symbicort) durvalumab 50 mg/mL intravenous 50 mg IV SEEINSTR 01/23/19 01/23/19 solution lamotrigine 200 mg tablet 200 mg PO BID 01/23/19 01/23/19 lithium carbonate 150 mg capsule 450 mg PO BID 01/23/19 01/23/19 lorazepam 0.5 mg tablet 0.5 mg PO DAILY PRN 01/23/19 01/23/19 methadone 10 mg tablet 25 mg PO TID 01/23/19 01/23/19 ondansetron 8 mg disintegrating 8 mg PO Q8HR PRN 01/23/19 01/23/19 tablet pantoprazole 40 mg tablet,delayed 40 mg PO DAILY 01/23/19 01/23/19 release prazosin 1 mg capsule 1 mg PO DAILY 01/23/19 01/23/19 primidone 50 mg tablet 200 mg PO DAILY 01/23/19 01/23/19 quetiapine 50 mg tablet 100 mg PO BID 01/23/19 01/23/19 sertraline 100 mg tablet 100 mg PO DAILY 01/23/19 01/23/19 sucralfate 1 gram tablet 1 g PO QID 01/23/19 01/23/19 Previous Rx's Medication Instructions Recorded enoxaparin 80 mg/0.8 mL 80 mg (0.8 mL) SUBCUT Q12H #8 ml 11/17/18 subcutaneous syringe (Lovenox) Allergies Allergy/AdvReac Type Severity Reaction Status Date / Time Penicillins Allergy Severe Anaphylaxis Verified 05/31/21 06:05 Sulfa (Sulfonamide Allergy Verified 01/23/19 23:34 Antibiotics) Review of Systems Review of Systems Narrative: GENERAL: Denies chills, fatigue, malaise, fever, sweats. HEENT: Denies sinus pain, ear pain, sore throat, difficulty swallowing, dizziness. RESPIRATORY: Denies dyspnea, cough, wheezing, hemoptysis, sputum. CARDIOVASCULAR: Denies chest pain, palpitations, orthopnea, edema, GASTROINTESTINAL: Denies nausea, vomiting, abdominal pain, diarrhea, constipation, melena. : Denies dysuria, frequency, incontinence, hematuria, urinary retention. MUSCULOSKELETAL: See HPI SKIN: Denies rash, skin lesions, or other NEUROLOGIC: Denies weakness, headache, numbness, change in speech, confusion, seizures, incoordination. PSYCHIATRIC: No concerning psychosocial issues. 12 point review of systems is negative except for those stated above Patient History Medical History Lung cancer Pulmonary embolism Social History household members: family Smoking Status: Current every day smoker alcohol intake: former Smoking Status: Current every day smoker alcohol intake frequency: 0-2 drinks per day Substance Use Type: does not use Exam Narrative Exam Narrative: GENERAL: [60] year old patient appears stated age. Well-developed patient, in mild distress. HEAD: Atraumatic. Normocephalic. EYES: Pupils equal round and reactive. Extraocular motions intact. No scleral icterus. No injection or drainage. ENT: Nose without bleeding, purulent drainage. Throat without erythema, tonsillar hypertrophy or exudate. Airway patent. NECK: Trachea midline. Non tender CARDIOVASCULAR: Regular rate and rhythm without murmurs, gallops, or rubs. RESPIRATORY: Clear to auscultation. Breath sounds equal bilaterally. No wheezes, rales, or rhonchi. GASTROINTESTINAL: Abdomen soft, non-tender, nondistended. EXTREMITIES: large nail through and through distal phalanx of left 2nd finger. No bleeding. No edema or joint tenderness. BACK: Nontender without deformity or crepitance. No flank tenderness. NEURO: AOx3. SKIN: No rash or erythema of visible areas Initial Vital Signs Initial Vital Signs: Vital Signs Temperature 97.6 F 05/31/21 03:15 Pulse Rate 99 H 05/31/21 03:15 Respiratory Rate 20 05/31/21 03:15 Blood Pressure 184/94 H 05/31/21 03:15 Pulse Oximetry 96 05/31/21 03:15 Procedures Nerve Block Nerve Block 1: Local Anesthetic: lidocaine 1% and with bicarb Amount of anesthesia used (mL): 4 Side: left Nerve Blocks: digital Procedure Successful: Yes Patient Tolerated Procedure: Well Course Course Course Narrative: digital block performed, but patient still having significant pain with manipulation of nail. Needle then run along the shaft of nail and more lido instilled. Nail gripped with pliers and very firmly pulled without any improvement, patient did not tolerate this as it caused severe pain. Call to Dr. Griggs (mobile application tester ortho). After reviewed case, images, and course t venessa including NPO status (no solids since yesterday morning, only 3oz coffee with creamer since 1800) he has activated the OR crew Orders Ordered: ED Orders 05/31/21 03:10 XR finger LT min 2V Stat 05/31/21 03:50 Basic Metabolic Panel Stat Complete Blood Count AUTO DIFF Stat 05/31/21 03:54 COVID19 -Nasal RAPID/Pre-Proc Stat Albuterol (Albuterol 2.5 Mg/3 Ml Neb (Adult)) 2.5 mg INH NOW PRN PRN Reason: Coughing, Wheezing, Dyspnea Fentanyl (Fentanyl 100 Mcg/2 Ml Inj) 0 mcg IV Q5MIN PRN PRN Reason: Pain, Severe (7-10) Sodium Chloride (Normal Saline 0.9%) 1,000 mls @ 125 mls/hr IV CONT PADMA Last Infusion: 05/31/21 05:21 Dose: Infused Documented by: Lactated Ringer's (Lactated Ringers) 1,000 mls @ 42 mls/hr IV CONT PADMA Lactated Ringer's (Lactated Ringers) 1,000 mls @ 120 mls/hr IV CONT PADMA Lorazepam (Lorazepam 2 Mg/Ml Inj) 0.25 mg IV NOW PRN PRN Reason: Anxiety Oxycodone HCl (Oxycodone Ir 5 Mg Tablet) 5 mg PO PACUNOW PRN PRN Reason: Mild or moderate pain Discontinued Medications Diphtheria/Tetanus/Acell Pertussis (Tet,Diph,Pertuss(Acell),Vac/Pf 0.5 Ml Syringe) 0.5 ml IM .ONCE ONE Stop: 05/31/21 03:11 Last Admin: 05/31/21 03:20 Dose: 0.5 ml Documented by: Doxycycline Hyclate (Doxycycline Hyclate 100 Mg Tablet) 100 mg PO NOW ONE Stop: 05/31/21 03:12 Last Admin: 05/31/21 03:19 Dose: 100 mg Documented by: Lidocaine/Sodium Bicarbonate (Lido 1%/Sod Bicarb 8.4% (10ml) 10 Ml Syringe) 10 ml INJ NOW ONE Stop: 05/31/21 03:11 Last Admin: 05/31/21 03:21 Dose: 10 ml Documented by: Lorazepam (Lorazepam 2 Mg/Ml Inj) 0.5 mg IV NOW ONE Stop: 05/31/21 03:58 Last Admin: 05/31/21 04:09 Dose: 0.5 mg Documented by: Ondansetron HCl (Ondansetron 4 Mg/2 Ml Inj) 4 mg IV NOW ONE Stop: 05/31/21 04:18 Last Admin: 05/31/21 04:20 Dose: 4 mg Documented by: Vital Signs Vital signs: Vital Signs - 8 hr 05/31/21 03:15 Temperature 97.6 F Pulse Rate 99 H Respiratory Rate 20 Blood Pressure 184/94 H Pulse Oximetry 96 MDM - Extremity Injury (Upper) Lab Data Result diagrams: 05/31/21 03:50 05/31/21 03:50 Labs: Lab Results 05/31/21 05/31/21 05/31/21 Range/Units 03:50 03:50 04:15 WBC 10.1 (4.5-11.0) X10^3/uL RBC 4.32 L (4.5-5.9) X10^6/uL Hgb 12.2 L (13.5-17.5) g/dL Hct 37.4 L (41-53) % MCV 86.4 (80-100) fL MCH 28.1 (26-34) PG MCHC 32.6 (30-36) % RDW 13.9 (11.6-14.8) % Plt Count 372 (150-400) X10^3/uL Neut % (Auto) 79.7 H (50-75) % Lymph % (Auto) 13.3 L (25-40) % [place] % (Auto) 6.1 (3-14) % Eos % (Auto) 0.6 L (2-4) % Baso % (Auto) 0.3 (0-2) % Neut # (Auto) 8100 H (9499-7384) /uL Lymph # (Auto) 1300 (2847-2404) /uL [place] # (Auto) 600 (0-900) /uL Eos # (Auto) 100 (0-450) /uL Baso # (Auto) 0 (0-100) /uL Sodium 137 (137-145) mmol/L Potassium 4.1 (3.4-5.1) mmol/L Chloride 103 (98-107) mmol/L Carbon Dioxide 25 (22-32) mmol/L BUN 11 (9-20) mg/dL Creatinine 0.68 (0.66-1.25) mg/dL Estimated GFR > 60 (>60) mL/min BUN/Creatinine Ratio 16.2 (6-22) Glucose 102 H (70-100) mg/dL Calcium 9.1 (8.4-10.2) mg/dL SARS-CoV-2 (PCR) Negative (Negative) Discharge Plan Departure Patient Disposition: Admitted to Surgery Clinical Impression: Foreign body of left index finger Admit Date/Time: 05/31/21 04:54 Admit Provider: Allan Griggs
[2021-05-31] MEDS: DOXYCYCLINE HYCLATE 100 MG TABLET PO (03:19)
[2021-05-31] MEDS: TET,DIPH,PERTUSS(ACELL),VAC/PF 0.5 ML SYRINGE IM (03:20)
[2021-05-31] MEDS: LIDO 1%/SOD BICARB 8.4% (10ML) 10 ML SYRINGE INJ (03:21)
[2021-05-31 04:03] LABS: Add Manual Diff / Slide Review NO; Basophils Absolute Auto 0 /uL (0-100); Basophils Percent Auto 0.3 % (0-2); Eosinophils Absolute Auto 100 /uL (0-450); Eosinophils Percent Auto 0.6 % (2-4); Hematocrit 37.4 % (41-53); Hemoglobin 12.2 g/dL (13.5-17.5); Lymphocytes Absolute Auto 1300 /uL (1100-4500); Lymphocytes Percent Auto 13.3 % (25-40); Mean Corpuscular HGB Conc 32.6 % (30-36); Mean Corpuscular Hemoglobin 28.1 PG (26-34); Mean Corpuscular Volume 86.4 fL (80-100); Monocytes Absolute Auto 600 /uL (0-900); Monocytes Percent Auto 6.1 % (3-14); Neutrophils Absolute Auto 8100 /uL (1500-7000); Neutrophils Percent Auto 79.7 % (50-75); Platelet Count 372 X10^3/uL (150-400); Red Blood Cell Count 4.32 X10^6/uL (4.5-5.9); Red Cell Distribution Width 13.9 % (11.6-14.8); White Blood Cell Count 10.1 X10^3/uL (4.5-11.0)
[2021-05-31] MEDS: LORazepam 2 MG/ML INJ 0.5 MG IV (04:09)
[2021-05-31] MEDS: SODIUM CHLORIDE 0.9% 1,000 ML 125 ML IV (04:10)
[2021-05-31 04:13] LABS: BUN Creatinine Ratio 16.2 (6-22); Blood Urea Nitrogen 11 mg/dL (9-20); Calcium 9.1 mg/dL (8.4-10.2); Carbon Dioxide 25 mmol/L (22-32); Chloride 103 mmol/L (98-107); Estimated Glomerular Filt Rate > 60 mL/min (>60); Glucose 102 mg/dL (70-100); HEMOLYSIS < 15 (0-50); Potassium 4.1 mmol/L (3.4-5.1); Sodium 137 mmol/L (137-145)
[2021-05-31] MEDS: ONDANSETRON 4 MG/2 ML INJ IV (04:20)
[2021-05-31 04:48] LABS: COVID19 -Nasal RAPID Negative (Negative)
--- NOTE | 2021-05-31 05:26 | P.HP_ITS ---
History of Present Illness History of Present Illness Date Patient Seen: 05/31/21 Time Patient Seen: 05:15 Chief complaint: nail in left finger Narrative: 60-year-old gentleman was building a dog house early this. Patient sustained an injury to his index finger. Patient drove the through the volar aspect his finger through the distal phalanx out dorsal aspect of the finger. Due to this injury, patient went to the emergency room were x-rays were obtained in an attempt to remove the nail was performed. There were unable to remove the nail and Orthopedics was then consulted. Patient denies any other injuries. Does have some numbness to the distal aspect the index finger. Patient History Medical History Lung cancer Pulmonary embolism Family & Social History Safety & Behavioral: Feels Safe in Current Yes Environment Been Physically Hurt or No Threatened By a Person Tobacco & Substance use: Smoking Status Current every day smoker alcohol intake frequency 0-2 drinks per day Substance Use Type does not use Meds Home Medications and Allergies Home Medications Medication Instructions Recorded Confirmed Type albuterol sulfate 90 mcg/actuation 2 puff INH PRN PRN #8.5 gm 05/24/11 01/23/19 History aerosol inhaler (Proventil HFA) alprazolam 0.5 mg tablet (Xanax) 1 mg PO HS #0 05/24/11 01/23/19 History ipratropium 0.5 mg-albuterol 3 mg 3 ml INH PRN #0 05/24/11 01/23/19 History (2.5 mg base)/3 mL nebulization soln enoxaparin 80 mg/0.8 mL 80 mg (0.8 mL) SUBCUT Q12H #8 ml 11/17/18 01/23/19 Rx subcutaneous syringe (Lovenox) benzonatate 100 mg capsule 100 mg PO TID 01/23/19 01/23/19 History budesonide-formoterol HFA 80 2 puff INHALATION BID 01/23/19 01/23/19 History mcg-4.5 mcg/actuation aerosol inhaler (Symbicort) durvalumab 50 mg/mL intravenous 50 mg IV SEEINSTR 01/23/19 01/23/19 History solution lamotrigine 200 mg tablet 200 mg PO BID 01/23/19 01/23/19 History lithium carbonate 150 mg capsule 450 mg PO BID 01/23/19 01/23/19 History lorazepam 0.5 mg tablet 0.5 mg PO DAILY PRN 01/23/19 01/23/19 History methadone 10 mg tablet 25 mg PO TID 01/23/19 01/23/19 History ondansetron 8 mg disintegrating 8 mg PO Q8HR PRN 01/23/19 01/23/19 History tablet pantoprazole 40 mg tablet,delayed 40 mg PO DAILY 01/23/19 01/23/19 History release prazosin 1 mg capsule 1 mg PO DAILY 01/23/19 01/23/19 History primidone 50 mg tablet 200 mg PO DAILY 01/23/19 01/23/19 History quetiapine 50 mg tablet 100 mg PO BID 01/23/19 01/23/19 History sertraline 100 mg tablet 100 mg PO DAILY 01/23/19 01/23/19 History sucralfate 1 gram tablet 1 g PO QID 01/23/19 01/23/19 History Allergies Allergy/AdvReac Type Severity Reaction Status Date / Time Penicillins Allergy Verified 01/23/19 23:34 Sulfa (Sulfonamide Allergy Verified 01/23/19 23:34 Antibiotics) Exam Vital Signs (past 8 hours): - 05/31/21 03:15 Temperature 97.6 F Pulse Rate 99 H Respiratory Rate 20 Blood Pressure 184/94 H Pulse Oximetry 96 Oxygen Delivery Method Room Air Narrative Exam Narrative: On exam, patient has a rather large nail through his left index finger. Does have some sensory changes to the distal aspect of the finger both volarly and dorsally. Difficult to assess his flexor and extensor tendon function due to significant pain difficulty ranging PIP joint. Normal motion at the PIP and MCP joints. Rest of the hand free of any injuries or abnormalities. Objective Labs Result Diagrams: 05/31/21 03:50 05/31/21 03:50 Labs: Laboratory Results - last 24 hr 05/31/21 05/31/21 05/31/21 03:50 03:50 04:15 WBC 10.1 RBC 4.32 L Hgb 12.2 L Hct 37.4 L MCV 86.4 MCH 28.1 MCHC 32.6 RDW 13.9 Plt Count 372 Neut % (Auto) 79.7 H Lymph % (Auto) 13.3 L [place] % (Auto) 6.1 Eos % (Auto) 0.6 L Baso % (Auto) 0.3 Neut # (Auto) 8100 H Lymph # (Auto) 1300 [place] # (Auto) 600 Eos # (Auto) 100 Baso # (Auto) 0 Sodium 137 Potassium 4.1 Chloride 103 Carbon Dioxide 25 BUN 11 Creatinine 0.68 Estimated GFR > 60 BUN/Creatinine Ratio 16.2 Glucose 102 H Calcium 9.1 SARS-CoV-2 (PCR) Negative Assessment & Plan Assessment & Plan narrative: Patient with a large nail through his left index finger. Discussed with the patient the plan will be to remove the nail and irrigate and debride the finger to remove any possible foreign material deposited by the nail. Based on his x- rays the nail has gone straight through the distal phalanx and this might require stabilization after the nail is removed. We will also evaluate flexor and extensor tendons to determine if any repair of the tendons might be indicated. All patient's questions and concerns were answered to his full satisfaction and consent form was freely obtained. The risk, benefits, alternatives, possible complications, operative course, and postop outcomes were discussed. Complications including but not limiting to bleeding, infection, fracture, nerve injury, continued pain postoperatively or instability postoperatively were discussed in detail. Medical complications including but not limited to deep venous thrombosis event, anesthesia complications with excessive bleeding, vascular events or cardiac events and other possible complications were discussed in detail. Need for postoperative rehabilitation and anticipated hospital stay and clinical course were discussed in detail. Patient acknowledges understanding and elects to proceed with surgery. Time Spent With Patient Critical Care time: I spent a total of [20] minutes of critical care time on this patient's care today; this time is exclusive of procedural time.
--- NOTE | 2021-05-31 05:35 | PM.PREOP ---
Pre-operative Note COVID-19 COVID-19 status: Negative Criteria for continued procedure: Possibility delay results in more complex future surgery or treatment, Increased loss of function, Continuing or worsening of significant or severe pain, Deterioration of the patient's condition or overall health and Delay expected to result in less-positive ultimate med/surg outcome Interval Note History & Physical reviewed/Exam performed by Physician: Yes Changes to H&P: No
[2021-05-31] MEDS: CLINDAMYCIN 900 MG/50 ML PIGGYBACK 50 MG IV (06:15)
--- NOTE | 2021-05-31 06:17 | SUR.OPER ---
Supine on padded OR bed, head on pillow, right arm secured on padded arm boards at <90 degrees abduction,left5 arm draped free on padded black arm table, legs uncrossed, safety belt at thigh, tape over blanket over lower legs.
--- NOTE | 2021-05-31 06:26 | PM.OP.1 ---
Operative Date/Time/Diagnoses Date of procedure: 05/31/21 Time of procedure: 05:50 Pre-op diagnosis: Foreign body left index finger Post-op diagnosis: same Procedure & Clinicians Procedure: Removal of nail from left index finger distal phalanx as well as irrigation and debridement of skin soft tissue and bone Same procedure as scheduled: Yes Indications: Patient with a 12 taylor weight partially ribbitted nail lodged into his left index finger distal phalanx Surgeon: Allan Griggs Click Yes if Unassisted: Yes Anesthesia Type: General Operative Notes Findings: Nail through the distal phalanx of the left index finger. Entrance wound was volarly exit wound was dorsally. Closure Type: primary Estimated Blood Loss (mL): 5 Tourniquet time (min): 17 Procedure in detail: On date of service, patient is met in the holding area where his operative site was signed witnessed by the OR staff. Surgery was discussed with the patient and any remaining questions or concerns he had were answered fully. Patient was taken back to the operating theater placed on the operating table in a supine position. Great care was taken to ensure that all bony prominences were appropriately padded. A well-padded tourniquet was placed up along the left upper extremity. We were able to remove the partially threaded nail by twisting it back out. This allowed the nail to come out much easier than trying to pull it straight out due to the fact that it was partially threaded. Next, The left arm was prepped and draped in the normal sterile fashion. Esmarch was used to exsanguinate the limb the tourniquet was turned up to 250 mmHg. Ten blade was used to make an incision on the volar aspect of the finger right over the entry wound. Sharp dissection was continued in till we had good visualization of the flexor tendon as well as the distal phalanx. Curette was used to debride the entrance wound into the distal phalanx removing any possible foreign material. Curette was then also used to debride the surrounding soft tissue. Fifteen blade was used to do sharp dissection of some of the fatty tissue around the entrance wound removing any possible foreign material. Copious irrigation was then performed to the volar aspect of the finger as well as in to the entrance wound into the distal phalanx. The same procedure was then done to the dorsal aspect of the finger over the exit wound. Ten blade was used to incise through the skin and fascial tissue over the exit wound. Pickups and tenotomies used to bluntly dissect down until we were able to visualize the extensor tendons as well as the exit wound. Both the extensor and flexor tendons were still intact. The crit was used once again into that bony tunnel to debride out the bone as well as the surrounding soft tissue. Copious irrigation was then used to the dorsal aspect of the wound as well as the bony tunnel. C-arm was brought in to evaluate the distal phalanx to see if any additional fixation was needed. Patient had the bony tunnel from the nail but no sign of any complete fracture through the entire distal phalanx. Both areas were irrigated once again and then closed loosely with 5 0 nylon. The finger was cleaned, dried, and dressed and patient was placed into a splint extubated and taken to the PACU in stable condition. Complications: none Post-operative Condition: stable Disposition: PACU Plan for aftercare: Patient will be discharged home. Patient will need a splint for 6 weeks mobilizing the distal phalanx and the DIP joint
[2021-05-31] MEDS: BUPIVACAINE 0.25% (PF) 30 ML, EPINEPHrine 0.15 MG INJ (06:39)
--- NOTE | 2021-05-31 06:57 | SUR.PHASEI ---
Patient using the urinal at bedside. Son on the way from [place].
--- NOTE | 2021-05-31 06:59 | SUR.PHASEI ---
Placed wedding band to fourth finger of left hand; upper dentures replaced to mouth; glasses on face. Report given to Beth Nieves receiving ANT .
== END 2021-05-31 07:25 | disposition home or self-care (01) ==
LOC: ED 04:40 → AC 04:55
PROVIDERS: Admitting Provider Orthopaedic Surgery; Emergency Provider Emergency Medicine; Visit Provider Orthopaedic Surgery
PROC: (CPT 20525; principal; 2021-05-31 05:30)
DX: Z18.89 Other specified retained foreign body fragments (principal); W45.0XXA Nail entering through skin, initial encounter; W27.8XXA Contact with other nonpowered hand tool, initial encounter; Y93.H3 Activity, building and construction; Y92.89 Other specified places as the place of occurrence of the external cause; F17.210 Nicotine dependence, cigarettes, uncomplicated; Z86.711 Personal history of pulmonary embolism; Z20.822 Contact with and (suspected) exposure to COVID-19
CPT/HCPCS: 20525; 10120; 36415; 64450; 73140; 80048; 85025; 87635; 90471; 96374; 96375; 99284; C9803; G0378; 90715; J0171; J1100; J1885; J2060; J2250; J2405; J2704

== ENCOUNTER 2021-09-29 12:39 | Emergency (ER) | payer MEDICARE, MEDICAID, SELFPAY ==
[2021-09-29] VITALS (19 sets, daily range): BP systolic 124–142; BP diastolic 58–92; PULSE 70–84; RESP 12–20; TEMP 36.9; O2SAT 97–100
--- NOTE | 2021-09-29 15:35 | PC.NURSE ---
pt reports he is having some hallucinations. states it started 2 days ago after he used Meth..swollen lower extremities. +2 pitting edema. states he finished lasix few days ago. reports that he wants help today. pt is very cooperative and pleasant. states he uses a cane since he had his knee surgery years ago. feels more stable with it. B/l knee total knee surgery.
[2021-09-29 15:57] LABS: Add Manual Diff / Slide Review NO; Basophils Absolute Auto 0 /uL (0-100); Basophils Percent Auto 0.4 % (0-2); Eosinophils Absolute Auto 100 /uL (0-450); Eosinophils Percent Auto 1.5 % (2-4); Hematocrit 29.4 % (41-53); Hemoglobin 9.8 g/dL (13.5-17.5); Lymphocytes Absolute Auto 1000 /uL (1100-4500); Lymphocytes Percent Auto 12.4 % (25-40); Mean Corpuscular HGB Conc 33.3 % (30-36); Mean Corpuscular Hemoglobin 29.7 PG (26-34); Monocytes Absolute Auto 500 /uL (0-900); Monocytes Percent Auto 5.9 % (3-14); Neutrophils Absolute Auto 6600 /uL (1500-7000); Neutrophils Percent Auto 79.8 % (50-75); Platelet Count 374 X10^3/uL (150-400); Red Cell Distribution Width 14.6 % (11.6-14.8); White Blood Cell Count 8.3 X10^3/uL (4.5-11.0)
[2021-09-29 16:25] LABS: Alanine Aminotransferase 13 IU/L (<50); Albumin 3.6 g/dL (3.5-5.0); Albumin Globulin Ratio 1.5 (1.0-2.8); Alkaline Phosphatase 129 U/L (38-126); Aspartate Aminotransferase 21 IU/L (17-59); BUN Creatinine Ratio 25.4 (6-22); Bilirubin Total 0.3 mg/dL (0.2-1.3); Blood Urea Nitrogen 17 mg/dL (9-20); Carbon Dioxide 26 mmol/L (22-32); Chloride 105 mmol/L (98-107); Estimated Glomerular Filt Rate > 60 mL/min (>60); Ethanol (ETOH) < 10 mg/dL; Globulin 2.4 g/dL (1.7-4.1); Glucose 75 mg/dL (70-100); HEMOLYSIS < 15 (0-50); Potassium 4.4 mmol/L (3.4-5.1); Sodium 135 mmol/L (137-145)
[2021-09-29] MEDS: LORazepam 0.5 MG TABLET 1 MG PO ×2 (17:09→21:13)
[2021-09-29 17:31] LABS: UR Morphine/Opiate cutoff 300 Negative (Negative); Ur Creatinine Normal (Normal); Ur Specific Gravity Normal (Normal); Urine Amphetamines Positive (Negative); Urine Barbiturates Positive (Negative); Urine Benzodiazepines Positive (Negative); Urine Cocaine Negative (Negative); Urine Methamphetamines Positive (Negative); Urine Oxycodone Negative (Negative); Urine Phencyclidine Negative (Negative); Urine Tetrahydrocannabinol Negative (Negative); Urine Tricyclic Antidepressant Positive (Negative); Urine pH Normal (Normal)
[2021-09-29 17:32] LABS: Urine MDMA Negative (Negative); Urine Methadone Positive (Negative)
[2021-09-29 17:36] LABS: NT-proBNP (BNP-Adult 18+) 200 pg/mL (<125)
[2021-09-29 17:39] LABS: Amorphous Sediment Urine 1+; Bacteria Urine Occasional (0-1); Culture Indicated Urine Specimen Cultured; RBC Urine 0-1/HPF (0-5/HPF); WBC Urine 10-30/HPF (0-5/HPF)
--- NOTE | 2021-09-29 17:52 | DI.RAD.S_ITS ---
PROCEDURE: XR CHEST 1V INDICATIONS: short of breath TECHNIQUE: One view of the chest was acquired. COMPARISON: [facility], CT, CT CHEST WITHOUT CONTRAST, 10/10/2020, 16:17. FINDINGS: Surgical changes and devices: None. Lungs and pleura: Lungs are clear. No pleural effusions or pneumothorax. Mediastinum: Mediastinal contours appear normal. Heart size is normal. Bones and chest wall: No suspicious bony lesions. Overlying soft tissues appear unremarkable. IMPRESSION: No acute cardiopulmonary process demonstrated radiographically. Dictated by: Hans San M.D. on 09/29/2021 at 18:11 Approved by: Hans San M.D. on 09/29/2021 at 18:12
--- NOTE | 2021-09-29 17:52 | ED.AMS ---
HPI - Altered Mental Status <Corrie Tayo, DO - Last Filed: 10/04/21 07:09> General Chief Complaint: Altered Mental Status Stated Complaint: Mental health crisis Time Seen by Provider: 09/29/21 15:19 Source: patient Mode of arrival: Ambulatory History of Present Illness HPI narrative: Patient is a 60-year-old male history of bipolar polysubstance abuse hallucinations presenting today with hallucinations. Son who is lives with him is extremely good advocate anti historian states that patient has had hallucinations for about 3 days. He has had these before but they seem to be significantly worse. He slightly paranoid. Describing fish between his toes. He describes people that are not there. He denies any evidence of harm to self or harm to others. The son says that he was able to identify that they were hallucinations yesterday he is slightly able to do so today. He has a remote history of lung cancer treated couple of years ago. However due to that he supposedly is in palliative care or he is getting methadone. He admits to snorting methamphetamine on a regular basis. He is noted to have quite low lower extremity edema. Some states this is significantly improved he was put on a water pill. He has no history of congestive heart failure. Patient is quite shaky but currently eating. He has a right knee injury requires him a cane toe walk when he has been falling and a little bit weaker than normal. Related Data Home Medications Medication Instructions Recorded Confirmed albuterol sulfate 90 mcg/actuation 2 puff INH PRN PRN Shortness Of 05/24/11 01/23/19 aerosol inhaler (Proventil HFA) Breath ##8.5 alprazolam 0.5 mg tablet (Xanax) 1 mg PO HS ##0 05/24/11 01/23/19 ipratropium 0.5 mg-albuterol 3 mg 3 ml INH PRN ##0 05/24/11 01/23/19 (2.5 mg base)/3 mL nebulization soln benzonatate 100 mg capsule 100 mg PO TID 01/23/19 01/23/19 budesonide-formoterol HFA 80 2 puff inhalation BID 01/23/19 01/23/19 mcg-4.5 mcg/actuation aerosol inhaler (Symbicort) durvalumab 50 mg/mL intravenous 50 mg IV SEEINSTR 01/23/19 01/23/19 solution lamotrigine 200 mg tablet 200 mg PO BID 01/23/19 01/23/19 lithium carbonate 150 mg capsule 450 mg PO BID 01/23/19 01/23/19 lorazepam 0.5 mg tablet 0.5 mg PO DAILY PRN Anxiety 01/23/19 01/23/19 methadone 10 mg tablet 25 mg PO TID 01/23/19 01/23/19 ondansetron 8 mg disintegrating 8 mg PO Q8HR PRN Nausea 01/23/19 01/23/19 tablet pantoprazole 40 mg tablet,delayed 40 mg PO DAILY 01/23/19 01/23/19 release prazosin 1 mg capsule 1 mg PO DAILY 01/23/19 01/23/19 primidone 50 mg tablet 200 mg PO DAILY 01/23/19 01/23/19 quetiapine 50 mg tablet 100 mg PO BID 01/23/19 01/23/19 sertraline 100 mg tablet 100 mg PO DAILY 01/23/19 01/23/19 sucralfate 1 gram tablet 1 g PO QID 01/23/19 01/23/19 Previous Rx's Medication Instructions Recorded enoxaparin 80 mg/0.8 mL 80 mg (0.8 mL) SUBCUT Q12H #8 mL 11/17/18 subcutaneous syringe (Lovenox) oxycodone-acetaminophen 5 mg-325 2 tab PO Q4-6H PRN pain #60 tabs 05/31/21 mg tablet (Percocet) Allergies Allergy/AdvReac Type Severity Reaction Status Date / Time Penicillins Allergy Severe Anaphylaxis Verified 09/29/21 13:02 Sulfa (Sulfonamide Allergy Verified 09/29/21 13:02 Antibiotics) Review of Systems <Corrie Cr DO - Last Filed: 10/04/21 07:09> Neurologic Neurologic: Reports behavioral changes Psychiatric Psychiatric: Reports as per HPI, Reports behavioral changes, Reports auditory hallucinations, Reports tactile hallucinations and Denies homicidal ideation Patient History <Corrie Cr DO - Last Filed: 10/04/21 07:09> Medical History (Updated 09/30/21 @ 08:03 by Adrián Jones DO) Lung cancer Pulmonary embolism Social History household members: family Smoking Status: Current every day smoker alcohol intake: former Smoking Status: Current every day smoker alcohol intake frequency: 0-2 drinks per day Substance Use Type: methamphetamine Exam <Corrie Cr DO - Last Filed: 10/04/21 07:09> Initial Vital Signs Initial Vital Signs: Vital Signs Temperature 98.5 F 09/29/21 12:40 Pulse Rate 84 09/29/21 12:40 Respiratory Rate 18 09/29/21 12:40 Blood Pressure 142/72 H 09/29/21 12:40 Pulse Oximetry 98 09/29/21 12:40 Oxygen Delivery Method 09/29/21 12:40 GENERAL: 60-year-old male appears chronically ill older than stated age HEENT: Head atraumatic,EOMI, pupils reactive, face symmetric, moist mucous membranes CARDIOVASCULAR: Regular rate and rhythm without murmurs, rubs or gallops. RESPIRATORY: Breath sounds equal bilaterally, no wheezes rales or rhonchi. ABDOMEN: Soft, nontender. Normoactive bowel sounds all 4 quadrants. No guarding or rebound. EXTREMITIES: Normal range of motion, no clubbing + 2 pitting edema Neurovascularly intact NEUROLOGICAL: Alert and oriented x2. SKIN: Warm, dry, no laceration, no petechiae, no rashes or lesions. <Adrián Jones DO - Last Filed: 09/30/21 08:03> Initial Vital Signs Initial Vital Signs: Vital Signs Temperature 98.5 F 09/29/21 12:40 Pulse Rate 84 09/29/21 12:40 Respiratory Rate 18 09/29/21 12:40 Blood Pressure 142/72 H 09/29/21 12:40 Pulse Oximetry 98 09/29/21 12:40 Oxygen Delivery Method 09/29/21 12:40 Course <Corrie Cr DO - Last Filed: 10/04/21 07:09> Orders Ordered: Discontinued Medications Haloperidol (Haloperidol 5 Mg Tablet) 5 mg PO NOW ONE Stop: 09/29/21 20:56 Last Admin: 09/29/21 22:26 Dose: Not Given Documented By: [facility] Haloperidol (Haloperidol 5 Mg/Ml Vial) 2.5 mg IV NOW ONE Stop: 09/29/21 22:26 Last Admin: 09/29/21 22:29 Dose: 2.5 mg Documented By: [facility] Lorazepam (Lorazepam 0.5 Mg Tablet) 1 mg PO NOW ONE Stop: 09/29/21 16:31 Last Admin: 09/29/21 17:09 Dose: 1 mg Documented By: HERMINIO Lorazepam (Lorazepam 0.5 Mg Tablet) 1 mg PO NOW ONE Stop: 09/29/21 20:57 Last Admin: 09/29/21 21:13 Dose: 1 mg Documented By: SANJU Lorazepam (Lorazepam 0.5 Mg Tablet) 2 mg PO NOW ONE Stop: 09/30/21 01:42 Last Admin: 09/30/21 01:49 Dose: 2 mg Documented By: MOHAN Methadone HCl (Methadone 5 Mg Tablet) 40 mg PO DAILY ONE Stop: 09/30/21 05:44 Last Admin: 09/30/21 06:00 Dose: 40 mg Documented By: MOHAN Nicotine (Nicotine 21 Mg Patch) 21 mg TOP NOW ONE Stop: 09/29/21 20:13 Last Admin: 09/29/21 20:18 Dose: 21 mg Documented By: HERMINIO Vital Signs Vital signs: Vital Signs - 8 hr 09/30/21 00:00 09/30/21 00:31 09/30/21 01:00 Temperature Pulse Rate 81 84 72 Respiratory Rate Blood Pressure Pulse Oximetry 97 99 99 Oxygen Delivery Method 09/30/21 01:30 09/30/21 02:00 09/30/21 02:30 Temperature Pulse Rate 88 75 80 Respiratory Rate Blood Pressure Pulse Oximetry 100 99 99 Oxygen Delivery Method 09/30/21 03:06 09/30/21 03:30 09/30/21 07:22 Temperature 98 F Pulse Rate 73 79 77 Respiratory Rate 18 Blood Pressure 121/59 L Pulse Oximetry 99 99 99 Oxygen Delivery Method Room Air <Adrián Jones DO - Last Filed: 09/30/21 08:03> Orders Ordered: Discontinued Medications Haloperidol (Haloperidol 5 Mg Tablet) 5 mg PO NOW ONE Stop: 09/29/21 20:56 Last Admin: 09/29/21 22:26 Dose: Not Given Documented By: SANJU Haloperidol (Haloperidol 5 Mg/Ml Vial) 2.5 mg IV NOW ONE Stop: 09/29/21 22:26 Last Admin: 09/29/21 22:29 Dose: 2.5 mg Documented By: SANJU Lorazepam (Lorazepam 0.5 Mg Tablet) 1 mg PO NOW ONE Stop: 09/29/21 16:31 Last Admin: 09/29/21 17:09 Dose: 1 mg Documented By: HERMINIO Lorazepam (Lorazepam 0.5 Mg Tablet) 1 mg PO NOW ONE Stop: 09/29/21 20:57 Last Admin: 09/29/21 21:13 Dose: 1 mg Documented By: SANJU Lorazepam (Lorazepam 0.5 Mg Tablet) 2 mg PO NOW ONE Stop: 09/30/21 01:42 Last Admin: 09/30/21 01:49 Dose: 2 mg Documented By: MOHAN Methadone HCl (Methadone 5 Mg Tablet) 40 mg PO DAILY ONE Stop: 09/30/21 05:44 Last Admin: 09/30/21 06:00 Dose: 40 mg Documented By: MOHAN Nicotine (Nicotine 21 Mg Patch) 21 mg TOP NOW ONE Stop: 09/29/21 20:13 Last Admin: 09/29/21 20:18 Dose: 21 mg Documented By: HERMINIO Vital Signs Vital signs: Vital Signs - 8 hr 09/30/21 00:00 09/30/21 00:31 09/30/21 01:00 Temperature Pulse Rate 81 84 72 Respiratory Rate Blood Pressure Pulse Oximetry 97 99 99 Oxygen Delivery Method 09/30/21 01:30 09/30/21 02:00 09/30/21 02:30 Temperature Pulse Rate 88 75 80 Respiratory Rate Blood Pressure Pulse Oximetry 100 99 99 Oxygen Delivery Method 09/30/21 03:06 09/30/21 03:30 09/30/21 07:22 Temperature 98 F Pulse Rate 73 79 77 Respiratory Rate 18 Blood Pressure 121/59 L Pulse Oximetry 99 99 99 Oxygen Delivery Method Room Air MDM - Altered Mental Status <Corrie Cr, - Last Filed: 10/04/21 07:09> Lab Data Result diagrams: 09/29/21 15:49 09/29/21 15:49 Labs: Lab Results 09/29/21 09/29/21 09/29/21 Range/Units 15:49 15:49 15:49 WBC 8.3 (4.5-11.0) X10^3/uL RBC 3.30 L (4.5-5.9) X10^6/uL Hgb 9.8 L (13.5-17.5) g/dL Hct 29.4 L (41-53) % MCV 89.0 (80-100) fL MCH 29.7 (26-34) PG MCHC 33.3 (30-36) % RDW 14.6 (11.6-14.8) % Plt Count 374 (150-400) X10^3/uL Neut % (Auto) 79.8 H (50-75) % Lymph % (Auto) 12.4 L (25-40) % Dickenson % (Auto) 5.9 (3-14) % Eos % (Auto) 1.5 L (2-4) % Baso % (Auto) 0.4 (0-2) % Neut # (Auto) 6600 (4809-3096) /uL Lymph # (Auto) 1000 L (6224-2151) /uL Dickenson # (Auto) 500 (0-900) /uL Eos # (Auto) 100 (0-450) /uL Baso # (Auto) 0 (0-100) /uL Sodium 135 L (137-145) mmol/L Potassium 4.4 (3.4-5.1) mmol/L Chloride 105 (98-107) mmol/L Carbon Dioxide 26 (22-32) mmol/L BUN 17 (9-20) mg/dL Creatinine 0.67 (0.66-1.25) mg/dL Estimated GFR > 60 (>60) mL/min BUN/Creatinine Ratio 25.4 H (6-22) Glucose 75 (70-100) mg/dL Calcium 9.0 (8.4-10.2) mg/dL Total Bilirubin 0.3 (0.2-1.3) mg/dL AST 21 (17-59) IU/L ALT 13 (<50) IU/L Alkaline Phosphatase 129 H (38-126) U/L Total Creatine Kinase (55-170) U/L CK-MB (CK-2) CK-MB (CK-2) Rel Index Troponin I (0.01-0.034) ng/mL NT-Pro-B Natriuret Pep 200 H (<125) pg/mL Total Protein 6.0 L (6.3-8.2) g/dL Albumin 3.6 (3.5-5.0) g/dL Globulin 2.4 (1.7-4.1) g/dL Albumin/Globulin Ratio 1.5 (1.0-2.8) Urine RBC (0-5/HPF) Urine WBC (0-5/HPF) Amorphous Sediment Urine Bacteria (None) Ur Culture Indicated? U Opiates 300ng/mL cut (Negative) Ur Oxycodone Screen (Negative) Urine Methadone Screen (Negative) Ur Barbiturates Screen (Negative) U Tricyclic Antidepress (Negative) Ur Phencyclidine Scrn (Negative) Ur Amphetamines Screen (Negative) U Methamphetamines Scrn (Negative) Ur MDMA Scrn (Ecstasy) (Negative) U Benzodiazepines Scrn (Negative) Urine Cocaine Screen (Negative) U Marijuana (THC) Screen (Negative) Ethyl Alcohol < 10 ( - 10) mg/dL SARS-CoV-2 (PCR) (Negative) 09/29/21 09/29/21 09/29/21 Range/Units 15:49 17:00 17:00 WBC (4.5-11.0) X10^3/uL RBC (4.5-5.9) X10^6/uL Hgb (13.5-17.5) g/dL Hct (41-53) % MCV (80-100) fL MCH (26-34) PG MCHC (30-36) % RDW (11.6-14.8) % Plt Count (150-400) X10^3/uL Neut % (Auto) (50-75) % Lymph % (Auto) (25-40) % Dickenson % (Auto) (3-14) % Eos % (Auto) (2-4) % Baso % (Auto) (0-2) % Neut # (Auto) (1232-2670) /uL Lymph # (Auto) (3877-8922) /uL Dickenson # (Auto) (0-900) /uL Eos # (Auto) (0-450) /uL Baso # (Auto) (0-100) /uL Sodium (137-145) mmol/L Potassium (3.4-5.1) mmol/L Chloride (98-107) mmol/L Carbon Dioxide (22-32) mmol/L BUN (9-20) mg/dL Creatinine (0.66-1.25) mg/dL Estimated GFR (>60) mL/min BUN/Creatinine Ratio (6-22) Glucose (70-100) mg/dL Calcium (8.4-10.2) mg/dL Total Bilirubin (0.2-1.3) mg/dL AST (17-59) IU/L ALT (<50) IU/L Alkaline Phosphatase (38-126) U/L Total Creatine Kinase 62 (55-170) U/L CK-MB (CK-2) TNP CK-MB (CK-2) Rel Index TNP Troponin I < 0.012 (0.01-0.034) ng/mL NT-Pro-B Natriuret Pep (<125) pg/mL Total Protein (6.3-8.2) g/dL Albumin (3.5-5.0) g/dL Globulin (1.7-4.1) g/dL Albumin/Globulin Ratio (1.0-2.8) Urine RBC 0-1/hpf (0-5/HPF) Urine WBC 10-30/hpf H (0-5/HPF) Amorphous Sediment 1+ Urine Bacteria Occasional (0-1) (None) Ur Culture Indicated? Specimen cultured U Opiates 300ng/mL cut Negative (Negative) Ur Oxycodone Screen Negative (Negative) Urine Methadone Screen Positive H (Negative) Ur Barbiturates Screen Positive H (Negative) U Tricyclic Antidepress Positive H (Negative) Ur Phencyclidine Scrn Negative (Negative) Ur Amphetamines Screen Positive H (Negative) U Methamphetamines Scrn Positive H (Negative) Ur MDMA Scrn (Ecstasy) Negative (Negative) U Benzodiazepines Scrn Positive H (Negative) Urine Cocaine Screen Negative (Negative) U Marijuana (THC) Screen Negative (Negative) Ethyl Alcohol ( - 10) mg/dL SARS-CoV-2 (PCR) (Negative) 09/29/21 Range/Units 18:57 WBC (4.5-11.0) X10^3/uL RBC (4.5-5.9) X10^6/uL Hgb (13.5-17.5) g/dL Hct (41-53) % MCV (80-100) fL MCH (26-34) PG MCHC (30-36) % RDW (11.6-14.8) % Plt Count (150-400) X10^3/uL Neut % (Auto) (50-75) % Lymph % (Auto) (25-40) % Dickenson % (Auto) (3-14) % Eos % (Auto) (2-4) % Baso % (Auto) (0-2) % Neut # (Auto) (1559-3566) /uL Lymph # (Auto) (6542-1368) /uL Dickenson # (Auto) (0-900) /uL Eos # (Auto) (0-450) /uL Baso # (Auto) (0-100) /uL Sodium (137-145) mmol/L Potassium (3.4-5.1) mmol/L Chloride (98-107) mmol/L Carbon Dioxide (22-32) mmol/L BUN (9-20) mg/dL Creatinine (0.66-1.25) mg/dL Estimated GFR (>60) mL/min BUN/Creatinine Ratio (6-22) Glucose (70-100) mg/dL Calcium (8.4-10.2) mg/dL Total Bilirubin (0.2-1.3) mg/dL AST (17-59) IU/L ALT (<50) IU/L Alkaline Phosphatase (38-126) U/L Total Creatine Kinase (55-170) U/L CK-MB (CK-2) CK-MB (CK-2) Rel Index Troponin I (0.01-0.034) ng/mL NT-Pro-B Natriuret Pep (<125) pg/mL Total Protein (6.3-8.2) g/dL Albumin (3.5-5.0) g/dL Globulin (1.7-4.1) g/dL Albumin/Globulin Ratio (1.0-2.8) Urine RBC (0-5/HPF) Urine WBC (0-5/HPF) Amorphous Sediment Urine Bacteria (None) Ur Culture Indicated? U Opiates 300ng/mL cut (Negative) Ur Oxycodone Screen (Negative) Urine Methadone Screen (Negative) Ur Barbiturates Screen (Negative) U Tricyclic Antidepress (Negative) Ur Phencyclidine Scrn (Negative) Ur Amphetamines Screen (Negative) U Methamphetamines Scrn (Negative) Ur MDMA Scrn (Ecstasy) (Negative) U Benzodiazepines Scrn (Negative) Urine Cocaine Screen (Negative) U Marijuana (THC) Screen (Negative) Ethyl Alcohol ( - 10) mg/dL SARS-CoV-2 (PCR) Negative (Negative) Urine Dip Bedside Urine Glucose Negative Bedside Urine Bilirubin - Negative Bedside Urine Ketone - Negative Urine Specific [place] 1.025 Bedside Urine Occult Blood - Negative Bedside Urine pH 6.5 Bedside Urine Protein - Negative Bedside Urine Urobilinogen - Negative Bedside Urine Nitrite - Negative Bedside Urine Leukocytes + 70 Esterase Imaging Data Chest x-ray: Radiologist's Impression: XRay Report Signed Patient: Vladislav Cruz MR#: [id number] : 1960 Acct:[id number] Age/Sex: 60 / M Date of Service: 09/29/21 Loc: ED Accession Number: [id number] ?? Procedure: XR chest 1V Ordering Provider: Corrie Cr D.O. PROCEDURE:? XR CHEST 1V ? INDICATIONS:? short of breath ? TECHNIQUE:? One view of the chest was acquired.? ? COMPARISON:? [facility], CT, CT CHEST WITHOUT CONTRAST, 10/10/2020, 16:17. ? FINDINGS:? ? Surgical changes and devices:? None.? ? Lungs and pleura:? Lungs are clear.? No pleural effusions or pneumothorax.? ? Mediastinum:? Mediastinal contours appear normal.? Heart size is normal.? ? Bones and chest wall:? No suspicious bony lesions.? Overlying soft tissues appear unremarkable.? ? IMPRESSION:? No acute cardiopulmonary process demonstrated radiographically. ? ? Dictated by: Hans San M.D. on 09/29/2021 at 18:11 ?? CT scan - head: Radiologist's Impression: CT Scan Report Signed Patient: Vladislav Cruz MR#: [id number] : 1960 Acct:[id number] Age/Sex: 60 / M Date of Service: 09/29/21 Loc: ED Accession Number: [id number] ?? Procedure: CT head/brain wo con Ordering Provider: Corrie Cr D.O. PROCEDURE:? CT HEAD/BRAIN WO CON ? INDICATIONS:? History of lung cancer with hallucinations ? TECHNIQUE:? Noncontrast 4.5 mm thick angled axial sections acquired from the foramen magnum to the vertex, with coronal and sagittal reformats.? For radiation dose reduction, the following was used:? automated exposure control, adjustment of mA and/or kV according to patient size.? ? COMPARISON:? None. ? FINDINGS:? Image quality:? Excellent.? ? CSF spaces:? Basal cisterns are patent.? No extra-axial fluid collections.? The ventricles are symmetric in size and shape.? ? Brain:? No intracranial bleeds or masses.? There is cerebral volume loss for age, with resultant ventricular and sulcal prominence.? There are periventricular and deep white matter chronic small vessel ischemic changes.? There is intracranial internal carotid artery atherosclerosis.? ? Skull and face:? Calvarium and visualized facial bones appear intact, without suspicious lesions.? ? Sinuses:? Visualized sinuses and mastoids are clear.? ? IMPRESSION:? No acute intracranial abnormality. ? ? Dictated by: Hans San M.D. on 09/29/2021 at 18:46 ? ? ECG Data Interpretation: Normal sinus rhythm rate 66 IL interval 176 QRS [address] changes no T-wave inversions MDM Narrative Medical decision making narrative: The patient has substance abuse had history of bipolar. He is also acutely having hallucinations. No SI intentions. Head CT is negative he is mildly anemic. EKG troponin are also back and within normal limits. At this time he is medically cleared. Social Work to see and evaluate Signed out to Dr. Daily [09/30/21 0700] (Robert) Patient received in sign out from [Abimbola]. I have reviewed the clinical course and performed a brief independent history and physical. Transfer pending with arrival of EMS at 0730 <Adrián Jones, DO - Last Filed: 09/30/21 08:03> Lab Data Labs: Lab Results 09/29/21 09/29/21 09/29/21 Range/Units 15:49 15:49 15:49 WBC 8.3 (4.5-11.0) X10^3/uL RBC 3.30 L (4.5-5.9) X10^6/uL Hgb 9.8 L (13.5-17.5) g/dL Hct 29.4 L (41-53) % MCV 89.0 (80-100) fL MCH 29.7 (26-34) PG MCHC 33.3 (30-36) % RDW 14.6 (11.6-14.8) % Plt Count 374 (150-400) X10^3/uL Neut % (Auto) 79.8 H (50-75) % Lymph % (Auto) 12.4 L (25-40) % Dickenson % (Auto) 5.9 (3-14) % Eos % (Auto) 1.5 L (2-4) % Baso % (Auto) 0.4 (0-2) % Neut # (Auto) 6600 (9221-9880) /uL Lymph # (Auto) 1000 L (7488-3605) /uL Dickenson # (Auto) 500 (0-900) /uL Eos # (Auto) 100 (0-450) /uL Baso # (Auto) 0 (0-100) /uL Sodium 135 L (137-145) mmol/L Potassium 4.4 (3.4-5.1) mmol/L Chloride 105 (98-107) mmol/L Carbon Dioxide 26 (22-32) mmol/L BUN 17 (9-20) mg/dL Creatinine 0.67 (0.66-1.25) mg/dL Estimated GFR > 60 (>60) mL/min BUN/Creatinine Ratio 25.4 H (6-22) Glucose 75 (70-100) mg/dL Calcium 9.0 (8.4-10.2) mg/dL Total Bilirubin 0.3 (0.2-1.3) mg/dL AST 21 (17-59) IU/L ALT 13 (<50) IU/L Alkaline Phosphatase 129 H (38-126) U/L Total Creatine Kinase (55-170) U/L CK-MB (CK-2) CK-MB (CK-2) Rel Index Troponin I (0.01-0.034) ng/mL NT-Pro-B Natriuret Pep 200 H (<125) pg/mL Total Protein 6.0 L (6.3-8.2) g/dL Albumin 3.6 (3.5-5.0) g/dL Globulin 2.4 (1.7-4.1) g/dL Albumin/Globulin Ratio 1.5 (1.0-2.8) Urine RBC (0-5/HPF) Urine WBC (0-5/HPF) Amorphous Sediment Urine Bacteria (None) Ur Culture Indicated? U Opiates 300ng/mL cut (Negative) Ur Oxycodone Screen (Negative) Urine Methadone Screen (Negative) Ur Barbiturates Screen (Negative) U Tricyclic Antidepress (Negative) Ur Phencyclidine Scrn (Negative) Ur Amphetamines Screen (Negative) U Methamphetamines Scrn (Negative) Ur MDMA Scrn (Ecstasy) (Negative) U Benzodiazepines Scrn (Negative) Urine Cocaine Screen (Negative) U Marijuana (THC) Screen (Negative) Ethyl Alcohol < 10 ( - 10) mg/dL SARS-CoV-2 (PCR) (Negative) 09/29/21 09/29/21 09/29/21 Range/Units 15:49 17:00 17:00 WBC (4.5-11.0) X10^3/uL RBC (4.5-5.9) X10^6/uL Hgb (13.5-17.5) g/dL Hct (41-53) % MCV (80-100) fL MCH (26-34) PG MCHC (30-36) % RDW (11.6-14.8) % Plt Count (150-400) X10^3/uL Neut % (Auto) (50-75) % Lymph % (Auto) (25-40) % Dickenson % (Auto) (3-14) % Eos % (Auto) (2-4) % Baso % (Auto) (0-2) % Neut # (Auto) (7425-7234) /uL Lymph # (Auto) (0595-4921) /uL Dickenson # (Auto) (0-900) /uL Eos # (Auto) (0-450) /uL Baso # (Auto) (0-100) /uL Sodium (137-145) mmol/L Potassium (3.4-5.1) mmol/L Chloride (98-107) mmol/L Carbon Dioxide (22-32) mmol/L BUN (9-20) mg/dL Creatinine (0.66-1.25) mg/dL Estimated GFR (>60) mL/min BUN/Creatinine Ratio (6-22) Glucose (70-100) mg/dL Calcium (8.4-10.2) mg/dL Total Bilirubin (0.2-1.3) mg/dL AST (17-59) IU/L ALT (<50) IU/L Alkaline Phosphatase (38-126) U/L Total Creatine Kinase 62 (55-170) U/L CK-MB (CK-2) TNP CK-MB (CK-2) Rel Index TNP Troponin I < 0.012 (0.01-0.034) ng/mL NT-Pro-B Natriuret Pep (<125) pg/mL Total Protein (6.3-8.2) g/dL Albumin (3.5-5.0) g/dL Globulin (1.7-4.1) g/dL Albumin/Globulin Ratio (1.0-2.8) Urine RBC 0-1/hpf (0-5/HPF) Urine WBC 10-30/hpf H (0-5/HPF) Amorphous Sediment 1+ Urine Bacteria Occasional (0-1) (None) Ur Culture Indicated? Specimen cultured U Opiates 300ng/mL cut Negative (Negative) Ur Oxycodone Screen Negative (Negative) Urine Methadone Screen Positive H (Negative) Ur Barbiturates Screen Positive H (Negative) U Tricyclic Antidepress Positive H (Negative) Ur Phencyclidine Scrn Negative (Negative) Ur Amphetamines Screen Positive H (Negative) U Methamphetamines Scrn Positive H (Negative) Ur MDMA Scrn (Ecstasy) Negative (Negative) U Benzodiazepines Scrn Positive H (Negative) Urine Cocaine Screen Negative (Negative) U Marijuana (THC) Screen Negative (Negative) Ethyl Alcohol ( - 10) mg/dL SARS-CoV-2 (PCR) (Negative) 09/29/21 Range/Units 18:57 WBC (4.5-11.0) X10^3/uL RBC (4.5-5.9) X10^6/uL Hgb (13.5-17.5) g/dL Hct (41-53) % MCV (80-100) fL MCH (26-34) PG MCHC (30-36) % RDW (11.6-14.8) % Plt Count (150-400) X10^3/uL Neut % (Auto) (50-75) % Lymph % (Auto) (25-40) % Dickenson % (Auto) (3-14) % Eos % (Auto) (2-4) % Baso % (Auto) (0-2) % Neut # (Auto) (5915-4387) /uL Lymph # (Auto) (9791-9913) /uL Dick[place] # (Auto) (0-900) /uL Eos # (Auto) (0-450) /uL Baso # (Auto) (0-100) /uL Sodium (137-145) mmol/L Potassium (3.4-5.1) mmol/L Chloride (98-107) mmol/L Carbon Dioxide (22-32) mmol/L BUN (9-20) mg/dL Creatinine (0.66-1.25) mg/dL Estimated GFR (>60) mL/min BUN/Creatinine Ratio (6-22) Glucose (70-100) mg/dL Calcium (8.4-10.2) mg/dL Total Bilirubin (0.2-1.3) mg/dL AST (17-59) IU/L ALT (<50) IU/L Alkaline Phosphatase (38-126) U/L Total Creatine Kinase (55-170) U/L CK-MB (CK-2) CK-MB (CK-2) Rel Index Troponin I (0.01-0.034) ng/mL NT-Pro-B Natriuret Pep (<125) pg/mL Total Protein (6.3-8.2) g/dL Albumin (3.5-5.0) g/dL Globulin (1.7-4.1) g/dL Albumin/Globulin Ratio (1.0-2.8) Urine RBC (0-5/HPF) Urine WBC (0-5/HPF) Amorphous Sediment Urine Bacteria (None) Ur Culture Indicated? U Opiates 300ng/mL cut (Negative) Ur Oxycodone Screen (Negative) Urine Methadone Screen (Negative) Ur Barbiturates Screen (Negative) U Tricyclic Antidepress (Negative) Ur Phencyclidine Scrn (Negative) Ur Amphetamines Screen (Negative) U Methamphetamines Scrn (Negative) Ur MDMA Scrn (Ecstasy) (Negative) U Benzodiazepines Scrn (Negative) Urine Cocaine Screen (Negative) U Marijuana (THC) Screen (Negative) Ethyl Alcohol ( - 10) mg/dL SARS-CoV-2 (PCR) Negative (Negative) Urine Dip Bedside Urine Glucose Negative Bedside Urine Bilirubin - Negative Bedside Urine Ketone - Negative Urine Specific [place] 1.025 Bedside Urine Occult Blood - Negative Bedside Urine pH 6.5 Bedside Urine Protein - Negative Bedside Urine Urobilinogen - Negative Bedside Urine Nitrite - Negative Bedside Urine Leukocytes + 70 Esterase MDM Narrative Medical decision making narrative: The patient has substance abuse had history of bipolar. He is also acutely having hallucinations but still to be quite up Claudio kg. No SI intentions. Head CT is negative he is mildly anemic. EKG troponin are also back. At this time he is medically cleared. Social Work to see and evaluate Signed out to Dr. Daily [09/30/21 0700] (Robert) Patient received in sign out from [[place]]. I have reviewed the clinical course and performed a brief independent history and physical. Transfer pending with arrival of EMS at 0730 <Adrián Jones, DO - Last Filed: 09/30/21 08:03> Critical Care Time Critical Care Time: Yes Total Critical Care Time: 30 Attestation: The high probability of a clinically significant, sudden or life threatening deterioration of the [CV/Neuro] system(s) required my full and direct attention, intervention and personal management. The aggregate critical care time was [30] minutes. This time is in addition to time spent performing reported procedures but includes the following: [x] Data Review and interpretation [x] Patient assessment and monitoring of vital signs [x] Documentation [x] Medication orders and management Discharge Plan Departure Patient Disposition: [facility] Clinical Impression: Bipolar disorder, Polysubstance abuse Prescriptions: No Action alprazolam [Xanax] 0.5 MG tablet 1 mg PO HS Qty: 0 albuterol sulfate [Proventil HFA] 90 MCG/PUFF HFA aerosol inhaler 2 puff INH PRN PRN (Reason: Shortness Of Breath) Qty: 8.5 ipratropium-albuterol 3 ML solution for nebulization 3 ml INH PRN Qty: 0 enoxaparin [Lovenox] 80 mg/0.8 mL syringe 80 mg SUBCUT Q12H Qty: 8 6RF primidone 50 mg tablet 200 mg PO DAILY lamotrigine 200 mg tablet 200 mg PO BID prazosin 1 mg capsule 1 mg PO DAILY sucralfate 1 gram tablet 1 g PO QID sertraline 100 mg tablet 100 mg PO DAILY lithium carbonate 150 mg capsule 450 mg PO BID ondansetron 8 mg tablet,disintegrating 8 mg PO Q8HR PRN (Reason: Nausea) lorazepam 0.5 mg tablet 0.5 mg PO DAILY PRN (Reason: Anxiety) benzonatate 100 mg capsule 100 mg PO TID pantoprazole 40 mg tablet,delayed release (DR/EC) 40 mg PO DAILY quetiapine 50 mg tablet 100 mg PO BID Symbicort 80-4.5 mcg/actuation HFA aerosol inhaler 2 puff INHALATION BID durvalumab 50 mg/mL Solution 50 mg IV SEEINSTR Rx Instructions: once every 2 weeks methadone 10 mg tablet 25 mg PO TID oxycodone-acetaminophen [Percocet] 5-325 mg tablet 2 tab PO Q4-6H PRN (Reason: pain) Qty: 60 0RF Referrals: France Sharp ARNP [Primary Care Provider] -
--- NOTE | 2021-09-29 18:05 | DI.CT.S_ITS ---
PROCEDURE: CT HEAD/BRAIN WO CON INDICATIONS: History of lung cancer with hallucinations TECHNIQUE: Noncontrast 4.5 mm thick angled axial sections acquired from the foramen magnum to the vertex, with coronal and sagittal reformats. For radiation dose reduction, the following was used: automated exposure control, adjustment of mA and/or kV according to patient size. COMPARISON: None. FINDINGS: Image quality: Excellent. CSF spaces: Basal cisterns are patent. No extra-axial fluid collections. The ventricles are symmetric in size and shape. Brain: No intracranial bleeds or masses. There is cerebral volume loss for age, with resultant ventricular and sulcal prominence. There are periventricular and deep white matter chronic small vessel ischemic changes. There is intracranial internal carotid artery atherosclerosis. Skull and face: Calvarium and visualized facial bones appear intact, without suspicious lesions. Sinuses: Visualized sinuses and mastoids are clear. IMPRESSION: No acute intracranial abnormality. Dictated by: Hans San M.D. on 09/29/2021 at 18:46 Approved by: Hans San M.D. on 09/29/2021 at 18:46
[2021-09-29 18:59] LABS: Creatine Kinase 62 U/L (55-170)
[2021-09-29 19:11] LABS: COVID19 -Nasal RAPID Negative (Negative)
--- NOTE | 2021-09-29 19:11 | CM.SWNOTE ---
ELECTRIC SOLDERER Assessment ELECTRIC SOLDERER - Turn Sewer Assessment ELECTRIC SOLDERER/Turn Sewer Assessment Time Spent with Patient Start date 09/29/21 Visit Start Time 18:05 End date 09/29/21 Visit End Time 18:35 Total time Care Management spent on 30 minutes patient visit-in minutes Mental Health Screening Include Onset, Duration, Intensity Presenting Problem Patient presents to ED with son due to patient's visual and auditory hallucinations. Patient endorses hx of Methamphetamine use 2-3 days ago. Patient denies SI and HI and endorses he is seeking dual dx inpatient hospitalization. Precipitating Event(s) Patient's a year ago and patient has been engaging in substance use on and off since then and has lost weight . Patient Strengths Patient has good support from his son who lives with him, patient has regular physician f/u and has MH providers. Patient has endorsed to his son that he wants to get clean and address his MH. Current Behavioral Health Provider(s) Patient has new therapist at [facility], Provider, Ph. # [facility] in [facility] and it is reported that patient has medication management there as well. (Ph. # [phone]) Psych. Hx Mental Health and Chemical Patient has hx of Bipolar Dependency disorder and Methamphetamine use. Patient has several Rx from palliative nurse, [facility] and PCP prescribers. Patient endorses hx of Methamphetamine use and states he used 2-3 days ago. Patient 's son endorses that patient was clean from substances for about a month prior to this recent use. Patient is positive for Methadone, Barbiurates, Tricyclic Antidepressants, Amphetamines, Methamphetamines , and Benzodiazepines. Family Hx of Behavioral Abuse None reported Psychiatric Hospitalizations (date(s)/ [facility]- voluntary 04/10/21-04/17/21 location) due to similar presentation. Psychosocial information & Support Patient is 60 y/o male who Systems resides in [place] with son . Patient has two daughters and grandkids that live nearby as well. School/Work Unemployed Legal Concerns Legal Matters - Outstanding Issues None reported Mental Status Orientation (Person/Place/Time) A/Ox3 Stated Mood ok Affect (Congruent with Mood?) tired, euthymic, full range, congruent with mood Thought Content - Specify/Describe Patient endorses that earlier Obsessions, Delusions, Hallucinations today he saw a private ambulance to pick him up but you can't see it... it has a cloak on it. Patient endorses that private security was yelling at him outside and then when he went inside he wanted to go to the ED to seek help. Patient endorses in the ED exam room he saw a [employer] stamp that turned into Mikey Henry on his foot. Patient states that he sees two helmets in the ED laundry bin in his room . In triage, patient reported seeing snakes and concerned that they were biting him. Patient's son endorses hx of patient rambling and not making sense or speaking false truths. Patient's son endorses that patient has been seeing invisible people that are talking to him and concerns that they are injecting patient. Son also states that patient has been concerned with neighbor's house and concerned that they are spies but the story changes daily. Patient's son endorses that in March 2021 prior to BH stay at [facility] patient was seeing tall aliens and patient was fearful that he was going to be attacked. Patient denies hearing current voices and states he can only here ELECTRIC SOLDERER's voice. Thought Processes (Kezmgov-Dkhbmtnn-Hgmg detailed, circumstantial but Dszvkxxp-Vuicvtob-Qenohktiys- provides prompt responses to Vuvlepaidnakxb-Fmsljjd-Rfgrkhhkzxhs- some questions. Thought Blocking) Speech (Qjppku-Qvta-Tmvknlb-Rapid-Soft- slow/soft Loud-Pressured) Motor (Stmrei-Shfkcozsr-[facility]-Other) slow/normal, patient has hx of tremors. Patient displays ability to perform ADLs. Patient brought cane to ED but both patient and son endorse that he does not need can to walk and can manage without it . Insight (Xiqx-Dddq-Pzqt/Limited) poor/limited Judgement (Bhvu-Kccf-Jytf/Limited) fair/limited Impulse Control (Adequate-Impaired) adequate Memory (Rpekzmxtv-Habtqn-Cctfhy, intact, not formally assessed Impaired-Intact) Concentration (Intact-Impaired) intact, patient tired in response to Ativan provided in ED Attention (Intact-Impaired) intact Behavior (Appropriate-Inappropriate) appropriate Additional Comment Patient presents as calm, cooperative and communicative. Risk Assessment Suicidal Ideation (Plan) No Homicidal Ideation (Plan) No Comment Patient and son endorse that patient has no hx of violence. Intervention Intervention ELECTRIC SOLDERER enters room to meet with patient. Present in patient's room is patient's son, patient provides consent for him to be present. Patient presents to ED due to concern for visual and auditory hallucinations. Patient endorses hx of Methamphetamine use. Patient endorses that he is seeking dual dx inpatient hospitalization and states that he has reviewed [facility] and expressed interest there, but is also open to go to any hospital. Patient endorses life stressors since the loss of his last year. Patient's son endorses that patient has been coping with methamphetamine use but trying to hide it. Patient's son endorses that at baseline patient has some hallucinations but hallucinations significantly increase when patient uses methamphetamine. Patient endorses his desire to address his MH and substance use at inpatient hospital. It is the opinion of this ELECTRIC SOLDERER that patient is appropriate for and will benefit from voluntary inpatient hospitalization for crisis stabilization and medication management. ELECTRIC SOLDERER reviews the above with ED provider Dr. Cr who indicates agreement and understanding. Plan RA Plan ELECTRIC SOLDERER and ED team to seek voluntary inpatient bed for patient upon medical clearance. MARCELLO Man
[2021-09-29 19:13] LABS: Troponin I < 0.012 ng/mL (0.01-0.034)
--- NOTE | 2021-09-29 19:46 | CM.SWNOTE ---
FONDANT COOKER Note FONDANT COOKER calls [facility] unit intake, it is reported they have beds and can review patient. FONDANT COOKER faxes clinicals for review. (Ph. # [phone]) FONDANT COOKER calls [facility] intake, it is reported that they have beds and can review patient. FONDANT COOKER faxes clinicals for review. FONDANT COOKER calls [facility] intake but their line is busy and they are not able to accept the call. Plan: Continue to seek voluntary dual dx bed for patient. Gin Villarreal, DIRECTOR OF EMPLOYER SERVICES
[2021-09-29] MEDS: NICOTINE 21 MG PATCH TOP (20:18)
--- NOTE | 2021-09-29 20:46 | PC.NURSE ---
pt restless. stated before son left that he did not want to harm himself. pt is starting to have hallucinations. trying to climb out of bed.staff at bedside.
--- NOTE | 2021-09-29 20:51 | PC.NURSE ---
Pt noted with increasing agitation, attempts to get out of bed. Reports distress due to unexplained swelling to his legs and small, superficial abrasions. Pt reports seeing a snake in his room and attempts to jab it with his cane. Pt states he would be agreeable to medication to help.
--- NOTE | 2021-09-29 21:30 | PC.NURSE ---
Patient reports a man and a women in his room. Reports snakes in his bed hitting his cane on the bed to kill the snakes. Patient reports concerns of a slug in his left eye.
[2021-09-29] MEDS: HALOPERIDOL 5 MG/ML VIAL 2.5 MG IV (22:29)
[2021-09-30] VITALS (9 sets, daily range): BP systolic 121; BP diastolic 59; PULSE 72–88; RESP 18; TEMP 36.6; O2SAT 97–100
[2021-09-30] MEDS: LORazepam 0.5 MG TABLET 2 MG PO (01:49)
--- NOTE | 2021-09-30 01:57 | PC.NURSE ---
0145 [facility] declined Pt due to Pt wanting more than a 5 day program/Pt was also declined due to likelihood of relapse based on prior programs. 0200 [facility] declined due to high Acuity needs of patient and risk for fall
[2021-09-30] MEDS: METHADONE 5 MG TABLET 40 MG PO (06:00)
--- NOTE | 2021-09-30 07:33 | PC.NURSE ---
Report called to Sidney arzola [facility] in [place].
== END 2021-09-30 08:05 | disposition short-term general hospital (02) ==
PROVIDERS: Emergency Medicine; Emergency Provider Emergency Medicine; PCP Nurse Practitioner
DX: F31.9 Bipolar disorder, unspecified (principal); F19.10 Other psychoactive substance abuse, uncomplicated; D64.9 Anemia, unspecified; Z20.822 Contact with and (suspected) exposure to COVID-19; Z08 Encounter for follow-up examination after completed treatment for malignant neoplasm; R44.3 Hallucinations, unspecified; R07.9 Chest pain, unspecified
CPT/HCPCS: 36415; 70450; 71045; 80053; 80305; 80320; 81003; 81015; 82550; 83880; 84484; 85025; 87086; 87635; 93005; 93010; 96374; 99284; 99285; C9803; J1630

== ENCOUNTER 2022-10-01 16:19 | Emergency (ER) | payer MEDICARE, MEDICAID, SELFPAY ==
[2022-10-01] VITALS (27 sets, daily range): BP systolic 127–168; BP diastolic 65–97; PULSE 84–108; RESP 15–41; TEMP 36.1; O2SAT 92–99; BMI 23.1
--- NOTE | 2022-10-01 | DI.RAD.S_ITS ---
PROCEDURE: XR CHEST 1V INDICATIONS: BEESTING/resp arrest TECHNIQUE: One view of the chest was acquired. COMPARISON: [facility], CR, XR CHEST 1V, 09/29/2021, 17:52. FINDINGS: Surgical changes and devices: None. Lungs and pleura: Lungs are clear. No pleural effusions or pneumothorax. Mediastinum: Mediastinal contours appear normal. Heart size is normal. Bones and chest wall: No suspicious bony lesions. Overlying soft tissues appear unremarkable. Lower cervical spinal fusion hardware is partially visualized. IMPRESSION: No acute cardiopulmonary process. Dictated by: Luna Paulino M.D. on 10/01/2022 at 16:57 Approved by: Luna Paulino M.D. on 10/01/2022 at 16:57
[2022-10-01] MEDS: methylPREDNISolone 125 MG/2 ML VIAL IV (16:20)
[2022-10-01] MEDS: FAMOTIDINE 20 MG/2 ML VIAL 40 MG IV (16:27)
--- NOTE | 2022-10-01 16:35 | ED.ALLEREA ---
HPI - Allergic Reaction General Chief complaint: Allergic Reaction Stated complaint: Severe Anaphalaxis Time Seen by Provider: 10/01/22 16:25 History of Present Illness HPI narrative: Patient 61-year-old male history of lung cancer in remission, bipolar, polysubstance abuse presenting today with anaphylactic reaction. 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 He does have anaphylaxis however he does not have an EpiPen. EMS reports that they gave 2 doses epi Benadryl and albuterol. They were considering intubating however he seems to have turned around although mental status is not quite at baseline. History is son and EMS. Patient is awake and alert able to follow commands he shaking slightly. There is no stridor no hives no obvious tongue swelling or lip swelling. Related Data Home Medications Medication Instructions Recorded Confirmed albuterol sulfate 90 mcg/actuation 2 puff INH PRN PRN Shortness Of 05/24/11 01/23/19 aerosol inhaler (Proventil HFA) Breath ##8.5 alprazolam 0.5 mg tablet (Xanax) 1 mg PO HS ##0 05/24/11 01/23/19 ipratropium 0.5 mg-albuterol 3 mg 3 ml INH PRN ##0 05/24/11 01/23/19 (2.5 mg base)/3 mL nebulization soln benzonatate 100 mg capsule 100 mg PO TID 01/23/19 01/23/19 budesonide-formoterol HFA 80 2 puff inhalation BID 01/23/19 01/23/19 mcg-4.5 mcg/actuation aerosol inhaler (Symbicort) durvalumab 50 mg/mL intravenous 50 mg IV SEEINSTR 01/23/19 01/23/19 solution lamotrigine 200 mg tablet 200 mg PO BID 01/23/19 01/23/19 lithium carbonate 150 mg capsule 450 mg PO BID 01/23/19 01/23/19 lorazepam 0.5 mg tablet 0.5 mg PO DAILY PRN Anxiety 01/23/19 01/23/19 methadone 10 mg tablet 25 mg PO TID 01/23/19 01/23/19 ondansetron 8 mg disintegrating 8 mg PO Q8HR PRN Nausea 01/23/19 01/23/19 tablet pantoprazole 40 mg tablet,delayed 40 mg PO DAILY 01/23/19 01/23/19 release prazosin 1 mg capsule 1 mg PO DAILY 01/23/19 01/23/19 primidone 50 mg tablet 200 mg PO DAILY 01/23/19 01/23/19 quetiapine 50 mg tablet 100 mg PO BID 01/23/19 01/23/19 sertraline 100 mg tablet 100 mg PO DAILY 01/23/19 01/23/19 sucralfate 1 gram tablet 1 g PO QID 01/23/19 01/23/19 Previous Rx's Medication Instructions Recorded enoxaparin 80 mg/0.8 mL 80 mg (0.8 mL) SUBCUT Q12H #8 mL 11/17/18 subcutaneous syringe (Lovenox) oxycodone-acetaminophen 5 mg-325 2 tab PO Q4-6H PRN pain #60 tabs 05/31/21 mg tablet (Percocet) epinephrine 0.3 mg/0.3 mL 0.3 mg (0.3 mL) IM Q5-15M PRN 10/01/22 injection, auto-injector anaphylaxis #2 ea Allergies Allergy/AdvReac Type Severity Reaction Status Date / Time Penicillins Allergy Severe Anaphylaxis Verified 09/29/21 13:02 Sulfa (Sulfonamide Allergy Verified 09/29/21 13:02 Antibiotics) Review of Systems Review of Systems ROS Unobtainable: All systems reviewed & are unremarkable except as noted in HPI and below Patient History Medical History (Updated 10/01/22 @ 19:33 by Corrie Cr DO) Lung cancer Pulmonary embolism Social History household members: family Smoking Status: Current every day smoker alcohol intake: former Smoking Status: Current every day smoker alcohol intake frequency: 0-2 drinks per day Substance Use Type: methamphetamine Exam Initial Vital Signs Initial Vital Signs: Vital Signs Temperature 97.0 F L 10/01/22 16:20 Pulse Oximetry 96 10/01/22 16:20 Oxygen Delivery Method Non -Rebreather 10/01/22 16:20 GENERAL: Alert chronically ill 61-year-old male HEENT: Head atraumatic,EOMI, pupils reactive, face symmetric, [moist] mucous membranes, no tongue swelling CARDIOVASCULAR: Regular rate and rhythm without murmurs, rubs or gallops. RESPIRATORY: Clear, no stridor ABDOMEN: Soft, nontender. Normoactive bowel sounds all 4 quadrants. No guarding or rebound. [RECTAL:] [Hemoccult-positive, no hemorrhoids, nontender] : No CVA tenderness EXTREMITIES: Normal range of motion, no clubbing or edema. Neurovascularly intact NEUROLOGICAL: Alert and oriented x4.Normal gait and speech. SKIN: Warm, dry, no laceration, no petechiae, no rashes or lesions. Course Orders Ordered: Discontinued Medications Acetaminophen (Acetaminophen 325 Mg Tablet) 975 mg PO NOW ONE Stop: 10/01/22 17:59 Last Admin: 10/01/22 18:36 Dose: 975 mg Documented By: SB Epinephrine HCl (Epinephrine 1 Mg/Ml) 0.3 mg IM NOW ONE Stop: 10/01/22 16:27 Last Admin: 10/01/22 16:46 Dose: 0.3 mg Documented By: SB Famotidine (Famotidine 20 Mg/2 Ml Vial) 40 mg IV NOW [facility] Last Admin: 10/01/22 16:27 Dose: 40 mg Documented By: SB Sodium Chloride (Normal Saline 0.9%) 1,000 mls @ 1,000 mls/hr IV CONT [facility] Last Admin: 10/01/22 16:45 Dose: Not Given Documented By: SB Sodium Chloride (Normal Saline 0.9%) 1,000 mls @ 1,000 mls/hr IV BOLUS ONE Stop: 10/01/22 17:34 Last Infusion: 10/01/22 17:40 Dose: 0 mls/hr Documented By: Admin: 10/01/22 16:41 Dose: 1,000 mls/hr Documented By: SB Methylprednisolone (Methylprednisolone 125 Mg/2 Ml Vial) 125 mg IV NOW ONE Stop: 10/01/22 16:49 Last Admin: 10/01/22 16:20 Dose: 125 mg Documented By: SB Vital Signs Vital signs: Vital Signs - 8 hr 10/01/22 16:20 10/01/22 16:23 10/01/22 16:25 Temperature 97.0 F L Pulse Rate 106 H 108 H Respiratory Rate 41 H 35 H Blood Pressure Pulse Oximetry 96 93 93 Oxygen Delivery Method Non -Rebreather Non -Rebreather Oxygen Flow Rate 15 10/01/22 16:25 10/01/22 16:28 10/01/22 16:28 Temperature Pulse Rate 105 H Respiratory Rate 30 H Blood Pressure 132/68 133/73 Pulse Oximetry 95 Oxygen Delivery Method Oxygen Flow Rate 10/01/22 16:30 10/01/22 16:32 10/01/22 16:32 Temperature Pulse Rate 99 H 101 H Respiratory Rate 39 H 29 H Blood Pressure 149/81 H Pulse Oximetry 95 95 Oxygen Delivery Method Nasal Cannula Oxygen Flow Rate 7 10/01/22 16:36 10/01/22 16:36 10/01/22 16:40 Temperature Pulse Rate 102 H 91 H Respiratory Rate 28 H 20 Blood Pressure 145/69 H Pulse Oximetry 95 96 Oxygen Delivery Method Room Air Oxygen Flow Rate 0 10/01/22 16:40 10/01/22 16:44 10/01/22 16:44 Temperature Pulse Rate 101 H Respiratory Rate 18 Blood Pressure 143/78 H 144/78 H Pulse Oximetry 92 Oxygen Delivery Method Nasal Cannula Oxygen Flow Rate 2 10/01/22 16:48 10/01/22 16:48 10/01/22 16:52 Temperature Pulse Rate 92 H 100 H Respiratory Rate 23 21 Blood Pressure 142/68 H Pulse Oximetry 96 97 Oxygen Delivery Method Oxygen Flow Rate 10/01/22 16:52 10/01/22 16:56 10/01/22 16:56 Temperature Pulse Rate 94 H Respiratory Rate 19 Blood Pressure 140/75 143/72 H Pulse Oximetry 95 Oxygen Delivery Method Oxygen Flow Rate 10/01/22 17:00 10/01/22 17:00 10/01/22 17:04 Temperature Pulse Rate 100 H Respiratory Rate 19 Blood Pressure 140/74 139/72 Pulse Oximetry 94 Oxygen Delivery Method Oxygen Flow Rate 10/01/22 17:04 10/01/22 17:08 10/01/22 17:08 Temperature Pulse Rate 95 H 98 H Respiratory Rate 20 17 Blood Pressure 152/76 H Pulse Oximetry 95 95 Oxygen Delivery Method Oxygen Flow Rate 10/01/22 17:12 10/01/22 17:12 10/01/22 17:16 Temperature Pulse Rate 95 H 93 H Respiratory Rate 21 27 H Blood Pressure 141/77 H Pulse Oximetry 95 95 Oxygen Delivery Method Oxygen Flow Rate 10/01/22 17:16 10/01/22 17:20 10/01/22 17:20 Temperature Pulse Rate 95 H Respiratory Rate 19 Blood Pressure 142/81 H 145/70 H Pulse Oximetry 96 Oxygen Delivery Method Oxygen Flow Rate 10/01/22 17:24 10/01/22 17:24 10/01/22 17:28 Temperature Pulse Rate 90 93 H Respiratory Rate 15 19 Blood Pressure 133/65 Pulse Oximetry 96 96 Oxygen Delivery Method Oxygen Flow Rate 10/01/22 17:28 10/01/22 17:30 10/01/22 17:30 Temperature Pulse Rate 91 H Respiratory Rate 17 Blood Pressure 133/72 127/68 Pulse Oximetry 95 Oxygen Delivery Method Nasal Cannula Oxygen Flow Rate 2 10/01/22 17:45 10/01/22 17:45 10/01/22 18:00 Temperature Pulse Rate 84 Respiratory Rate 15 Blood Pressure 130/72 168/97 H Pulse Oximetry 97 Oxygen Delivery Method Oxygen Flow Rate 10/01/22 18:00 10/01/22 18:30 10/01/22 18:30 Temperature Pulse Rate 87 85 Respiratory Rate 23 18 Blood Pressure 143/73 H Pulse Oximetry 98 98 Oxygen Delivery Method Room Air Oxygen Flow Rate MDM - Allergic Reaction Lab Data 10/01/22 16:30 10/01/22 16:30 Labs: Lab Results 10/01/22 10/01/22 10/01/22 Range/Units 16:30 16:30 16:30 WBC 11.7 H (4.5-11.0) X10^3/uL RBC 4.03 L (4.5-5.9) X10^6/uL Hgb 11.4 L (13.5-17.5) g/dL Hct 34.7 L (41-53) % MCV 86.2 (80-100) fL MCH 28.3 (26-34) PG MCHC 32.8 (30-36) % RDW 14.7 (11.6-14.8) % Plt Count 480 H (150-400) X10^3/uL Neut % (Auto) 67.7 (50-75) % Lymph % (Auto) 26.3 (25-40) % [place] % (Auto) 3.5 (3-14) % Eos % (Auto) 2.1 (2-4) % Baso % (Auto) 0.4 (0-2) % Neut # (Auto) 8000 H (2989-4441) /uL Lymph # (Auto) 3100 (0332-3280) /uL [place] # (Auto) 400 (0-900) /uL Eos # (Auto) 200 (0-450) /uL Baso # (Auto) 0 (0-100) /uL Sodium 138 (137-145) mmol/L Potassium 3.4 (3.4-5.1) mmol/L Chloride 106 (98-107) mmol/L Carbon Dioxide 21 L (22-32) mmol/L BUN 18 (9-20) mg/dL Creatinine 0.87 (0.66-1.25) mg/dL Estimated GFR > 60 (>60) mL/min BUN/Creatinine Ratio 20.7 (6-22) Glucose 175 H (70-100) mg/dL Calcium 9.1 (8.4-10.2) mg/dL Total Bilirubin 1.0 (0.2-1.3) mg/dL AST 28 (17-59) IU/L ALT 17 (<50) IU/L Alkaline Phosphatase 148 H (38-126) U/L Total Creatine Kinase 105 (55-170) U/L Troponin I < 0.012 (0.01-0.034) ng/mL NT-Pro-B Natriuret Pep 262 H (<125) pg/mL Total Protein 7.2 (6.3-8.2) g/dL Albumin 4.2 (3.5-5.0) g/dL Globulin 3.0 (1.7-4.1) g/dL Albumin/Globulin Ratio 1.4 (1.0-2.8) Lipase 98 (23-300) U/L Salicylates < 1.0 (<20) mg/dL U Opiates 300ng/mL cut (Negative) Ur Oxycodone Screen (Negative) Urine Methadone Screen (Negative) Acetaminophen < 10 (10-30) ug/mL Ur Barbiturates Screen (Negative) U Tricyclic Antidepress (Negative) Ur Phencyclidine Scrn (Negative) Ur Amphetamines Screen (Negative) U Methamphetamines Scrn (Negative) Ur MDMA Scrn (Ecstasy) (Negative) U Benzodiazepines Scrn (Negative) Urine Cocaine Screen (Negative) U Marijuana (THC) Screen (Negative) Ethyl Alcohol < 10 ( - 10) mg/dL 10/01/22 Range/Units 18:06 WBC (4.5-11.0) X10^3/uL RBC (4.5-5.9) X10^6/uL Hgb (13.5-17.5) g/dL Hct (41-53) % MCV (80-100) fL MCH (26-34) PG MCHC (30-36) % RDW (11.6-14.8) % Plt Count (150-400) X10^3/uL Neut % (Auto) (50-75) % Lymph % (Auto) (25-40) % [place] % (Auto) (3-14) % Eos % (Auto) (2-4) % Baso % (Auto) (0-2) % Neut # (Auto) (2741-7696) /uL Lymph # (Auto) (0885-7947) /uL [place] # (Auto) (0-900) /uL Eos # (Auto) (0-450) /uL Baso # (Auto) (0-100) /uL Sodium (137-145) mmol/L Potassium (3.4-5.1) mmol/L Chloride (98-107) mmol/L Carbon Dioxide (22-32) mmol/L BUN (9-20) mg/dL Creatinine (0.66-1.25) mg/dL Estimated GFR (>60) mL/min BUN/Creatinine Ratio (6-22) Glucose (70-100) mg/dL Calcium (8.4-10.2) mg/dL Total Bilirubin (0.2-1.3) mg/dL AST (17-59) IU/L ALT (<50) IU/L Alkaline Phosphatase (38-126) U/L Total Creatine Kinase (55-170) U/L Troponin I (0.01-0.034) ng/mL NT-Pro-B Natriuret Pep (<125) pg/mL Total Protein (6.3-8.2) g/dL Albumin (3.5-5.0) g/dL Globulin (1.7-4.1) g/dL Albumin/Globulin Ratio (1.0-2.8) Lipase (23-300) U/L Salicylates (<20) mg/dL U Opiates 300ng/mL cut Negative (Negative) Ur Oxycodone Screen Negative (Negative) Urine Methadone Screen Positive H (Negative) Acetaminophen (10-30) ug/mL Ur Barbiturates Screen Negative (Negative) U Tricyclic Antidepress Negative (Negative) Ur Phencyclidine Scrn Negative (Negative) Ur Amphetamines Screen Positive H (Negative) U Methamphetamines Scrn Positive H (Negative) Ur MDMA Scrn (Ecstasy) Negative (Negative) U Benzodiazepines Scrn Positive H (Negative) Urine Cocaine Screen Negative (Negative) U Marijuana (THC) Screen Negative (Negative) Ethyl Alcohol ( - 10) mg/dL Imaging Data Chest x-ray: Radiologist's Impression: PROCEDURE:? XR CHEST 1V ? INDICATIONS:? BEESTING/resp arrest ? TECHNIQUE:? One view of the chest was acquired.? ? COMPARISON:? [facility], CR, XR CHEST 1V, 09/29/2021, 17:52. ? FINDINGS:? ? Surgical changes and devices:? None.? ? Lungs and pleura:? Lungs are clear.? No pleural effusions or pneumothorax.? ? Mediastinum:? Mediastinal contours appear normal.? Heart size is normal.? ? Bones and chest wall:? No suspicious bony lesions.? Overlying soft tissues appear unremarkable.? Lower cervical spinal fusion hardware is partially visualized. ? IMPRESSION:? No acute cardiopulmonary process.? ? ? Dictated by: Luna Paulino M.D. on 10/01/2022 at 16:57 ? ? [facility] Narrative Medical decision making narrative: Patient 61-year-old male who presents today with anaphylaxis secondary to multiple bee stings. He reports not having an EpiPen secondary to cost and money. Mental status does not seem right. No stridor no hives no obvious angio edema. He is given albuterol he is given a 3rd dose of an epinephrine pen Solu-Medrol famotidine. X-ray is clear. He is not having any stridor managing his own secretions no need for intubation at this time. He is weaned off oxygen mentation improves. Blood work shows mild leukocytosis of 11 negative troponin normal electrolytes again positive for polysubstance abuse including marijuana amphetamines and methamphetamine. Now asking for his methadone. At this time patient is doing well. Need for admission or intubation. Discharge Plan Departure Patient Disposition: Home Clinical Impression: Anaphylactic reaction to bee sting Instructions: DI for Anaphylaxis Activity Restrictions/Additional Instructions: *You have been diagnosed with anaphylaxis to bees *What to do: At this time you must fill your epinephrine *Continue to take medications as directed Epinephrine as needed *Follow up with your primary care provider in 2-3 days or call [phone] *Return to ER if you should have any new, worsening or concerning symptoms Prescriptions: New epinephrine 0.3 mg/0.3 mL auto-injector 0.3 mg IM Q5-15M PRN (Reason: anaphylaxis) Qty: 2 0RF Rx Instructions: do not exceed 3 doses per episode No Action alprazolam [Xanax] 0.5 MG tablet 1 mg PO HS Qty: 0 albuterol sulfate [Proventil HFA] 90 MCG/PUFF HFA aerosol inhaler 2 puff INH PRN PRN (Reason: Shortness Of Breath) Qty: 8.5 ipratropium-albuterol 3 ML solution for nebulization 3 ml INH PRN Qty: 0 enoxaparin [Lovenox] 80 mg/0.8 mL syringe 80 mg SUBCUT Q12H Qty: 8 6RF primidone 50 mg tablet 200 mg PO DAILY lamotrigine 200 mg tablet 200 mg PO BID prazosin 1 mg capsule 1 mg PO DAILY sucralfate 1 gram tablet 1 g PO QID sertraline 100 mg tablet 100 mg PO DAILY lithium carbonate 150 mg capsule 450 mg PO BID ondansetron 8 mg tablet,disintegrating 8 mg PO Q8HR PRN (Reason: Nausea) lorazepam 0.5 mg tablet 0.5 mg PO DAILY PRN (Reason: Anxiety) benzonatate 100 mg capsule 100 mg PO TID pantoprazole 40 mg tablet,delayed release (DR/EC) 40 mg PO DAILY quetiapine 50 mg tablet 100 mg PO BID Symbicort 80-4.5 mcg/actuation HFA aerosol inhaler 2 puff INHALATION BID durvalumab 50 mg/mL Solution 50 mg IV SEEINSTR Rx Instructions: once every 2 weeks methadone 10 mg tablet 25 mg PO TID oxycodone-acetaminophen [Percocet] 5-325 mg tablet 2 tab PO Q4-6H PRN (Reason: pain) Qty: 60 0RF Referrals: [place] Sharp ARNP [Primary Care Provider] - Stand Alone Forms: Patient Portal/API
[2022-10-01 16:41] LABS: Add Manual Diff / Slide Review NO; Basophils Absolute Auto 0 /uL (0-100); Basophils Percent Auto 0.4 % (0-2); Eosinophils Absolute Auto 200 /uL (0-450); Eosinophils Percent Auto 2.1 % (2-4); Hematocrit 34.7 % (41-53); Hemoglobin 11.4 g/dL (13.5-17.5); Lymphocytes Absolute Auto 3100 /uL (1100-4500); Lymphocytes Percent Auto 26.3 % (25-40); Mean Corpuscular HGB Conc 32.8 % (30-36); Mean Corpuscular Hemoglobin 28.3 PG (26-34); Mean Corpuscular Volume 86.2 fL (80-100); Monocytes Absolute Auto 400 /uL (0-900); Monocytes Percent Auto 3.5 % (3-14); Neutrophils Absolute Auto 8000 /uL (1500-7000); Neutrophils Percent Auto 67.7 % (50-75); Platelet Count 480 X10^3/uL (150-400); Red Blood Cell Count 4.03 X10^6/uL (4.5-5.9); Red Cell Distribution Width 14.7 % (11.6-14.8); White Blood Cell Count 11.7 X10^3/uL (4.5-11.0)
[2022-10-01] MEDS: SODIUM CHLORIDE 0.9% 1,000 ML 1000 ML IV (16:41)
[2022-10-01] MEDS: EPINEPHrine 1 MG/ML 0.3 MG IM (16:46)
[2022-10-01 16:57] LABS: Alanine Aminotransferase 17 IU/L (<50); Albumin 4.2 g/dL (3.5-5.0); Albumin Globulin Ratio 1.4 (1.0-2.8); Alkaline Phosphatase 148 U/L (38-126); Aspartate Aminotransferase 28 IU/L (17-59); BUN Creatinine Ratio 20.7 (6-22); Blood Urea Nitrogen 18 mg/dL (9-20); Calcium 9.1 mg/dL (8.4-10.2); Carbon Dioxide 21 mmol/L (22-32); Chloride 106 mmol/L (98-107); Creatine Kinase 105 U/L (55-170); Estimated Glomerular Filt Rate > 60 mL/min (>60); Glucose 175 mg/dL (70-100); HEMOLYSIS < 15 (0-50); Lipase 98 U/L (23-300); Potassium 3.4 mmol/L (3.4-5.1); Sodium 138 mmol/L (137-145); Total Protein 7.2 g/dL (6.3-8.2)
[2022-10-01 16:58] LABS: Acetaminophen < 10 ug/mL (10-30); Ethanol (ETOH) < 10 mg/dL; Salicylate < 1.0 mg/dL (<20)
[2022-10-01 17:08] LABS: NT-proBNP (BNP-Adult 18+) 262 pg/mL (<125); Troponin I < 0.012 ng/mL (0.01-0.034)
[2022-10-01] MEDS: ACETAMINOPHEN 325 MG TABLET 975 MG PO (18:36)
[2022-10-01 18:58] LABS: UR Morphine/Opiate cutoff 300 Negative (Negative); Ur Creatinine Normal (Normal); Ur Specific Gravity Normal (Normal); Urine Amphetamines Positive (Negative); Urine Barbiturates Negative (Negative); Urine Cocaine Negative (Negative); Urine MDMA Negative (Negative); Urine Methamphetamines Positive (Negative); Urine Phencyclidine Negative (Negative); Urine Tetrahydrocannabinol Negative (Negative); Urine pH Normal (Normal)
[2022-10-01 18:59] LABS: Urine Benzodiazepines Positive (Negative); Urine Methadone Positive (Negative); Urine Oxycodone Negative (Negative); Urine Tricyclic Antidepressant Negative (Negative)
== END 2022-10-01 19:55 | disposition home or self-care (01) ==
PROVIDERS: Emergency Provider Emergency Medicine; PCP Nurse Practitioner
DX: T63.441A Toxic effect of venom of bees, accidental (unintentional), initial encounter (principal)
CPT/HCPCS: 71045; 80053; 80305; 80320; 80329; 82550; 83690; 83880; 84484; 85025; 93005; 96361; 96372; 96374; 96375; 99284; 99285; G0480; J0171; J2930

== ENCOUNTER 2022-12-02 22:14 | Emergency (ER) | payer MEDICARE, MEDICAID, SELFPAY ==
--- NOTE | 2022-12-02 | DI.RAD.S_ITS ---
PROCEDURE: XR KNEE LT 3V INDICATIONS: KNEE PAIN TECHNIQUE: 3 views of the knee were acquired. COMPARISON: None. FINDINGS: Bones: No fractures or dislocations. No suspicious bony lesions. Soft tissues: No joint effusion. No suspicious soft tissue calcifications. IMPRESSION: No visible acute fractures. If there is no improvement with conservative management, consider MRI. Dictated by: Katie Hunt M.D. on 12/03/2022 at 0:34 Approved by: Katie Hunt M.D. on 12/03/2022 at 0:36
[2022-12-02 22:30] VITALS: BP 177/90; PULSE 90; RESP 20; TEMP 36.9; O2SAT 98; BMI 22.8
--- NOTE | 2022-12-02 22:51 | ED.LOWEXIN ---
HPI - Extremity Injury (Lower) General Chief Complaint: Extremity Injury, Lower Stated Complaint: L leg inj Time Seen by Provider: 12/02/22 22:25 Source: patient Mode of arrival: Wheelchair History of Present Illness HPI Narrative: 62-year-old male with history of lung cancer in remission, bipolar, polysubstance abuse presents with complaint new and increased pain radiating down his left buttock towards his knee. Patient states about 2 weeks ago he was stepping over a gate felt a tweak and has been persistent and progressively more painful. Patient has not really had a lot of back pain recently but states he is had back issues in the past. He states he has been told the discs or spacing is very narrow between his L1 L4 region. Patient states he has chronic paresthesias and neuropathy he has not appreciated a new change. He does not have any saddle anesthesia. No bowel or bladder incontinence. Patient states he finds he ambulates best if he hunches over a little and externally rotates his left leg and uses a cane on his left side. He states he can ambulate fairly well in that position but is otherwise quite painful. Patient states no fevers. No new chest pain or shortness of breath. No nausea or vomiting. No other GI or urinary symptoms. He has not appreciate new weakness in his extremities. He states certain movements seem to exacerbate it quite a bit. He is never had any lower back surgery or interventions. He has had cervical surgery in the past. Patient states he is on methadone 3 times daily for chronic pain, he states he follows with palliative care they prescribe his medication. Patient has not had his evening dose. Patient denies any new swelling, redness or skin changes to his extremities. Related Data Home Medications Medication Instructions Recorded Confirmed albuterol sulfate 90 mcg/actuation 2 puff INH PRN PRN Shortness Of 05/24/11 01/23/19 aerosol inhaler (Proventil HFA) Breath ##8.5 alprazolam 0.5 mg tablet (Xanax) 1 mg PO HS ##0 05/24/11 01/23/19 ipratropium 0.5 mg-albuterol 3 mg 3 ml INH PRN ##0 05/24/11 01/23/19 (2.5 mg base)/3 mL nebulization soln benzonatate 100 mg capsule 100 mg PO TID 01/23/19 01/23/19 budesonide-formoterol HFA 80 2 puff inhalation BID 01/23/19 01/23/19 mcg-4.5 mcg/actuation aerosol inhaler (Symbicort) durvalumab 50 mg/mL intravenous 50 mg IV SEEINSTR 01/23/19 01/23/19 solution lamotrigine 200 mg tablet 200 mg PO BID 01/23/19 01/23/19 lithium carbonate 150 mg capsule 450 mg PO BID 01/23/19 01/23/19 lorazepam 0.5 mg tablet 0.5 mg PO DAILY PRN Anxiety 01/23/19 01/23/19 methadone 10 mg tablet 25 mg PO TID 01/23/19 01/23/19 ondansetron 8 mg disintegrating 8 mg PO Q8HR PRN Nausea 01/23/19 01/23/19 tablet pantoprazole 40 mg tablet,delayed 40 mg PO DAILY 01/23/19 01/23/19 release prazosin 1 mg capsule 1 mg PO DAILY 01/23/19 01/23/19 primidone 50 mg tablet 200 mg PO DAILY 01/23/19 01/23/19 quetiapine 50 mg tablet 100 mg PO BID 01/23/19 01/23/19 sertraline 100 mg tablet 100 mg PO DAILY 01/23/19 01/23/19 sucralfate 1 gram tablet 1 g PO QID 01/23/19 01/23/19 Previous Rx's Medication Instructions Recorded enoxaparin 80 mg/0.8 mL 80 mg (0.8 mL) SUBCUT Q12H #8 mL 11/17/18 subcutaneous syringe (Lovenox) oxycodone-acetaminophen 5 mg-325 2 tab PO Q4-6H PRN pain #60 tabs 05/31/21 mg tablet (Percocet) epinephrine 0.3 mg/0.3 mL 0.3 mg (0.3 mL) IM Q5-15M PRN 10/01/22 injection, auto-injector anaphylaxis #2 ea oxycodone 5 mg tablet 5 mg PO Q6H PRN pain #20 tabs 12/03/22 prednisone 10 mg tablets in a dose See Rx Instructions PO .COMPLEX 12/03/22 pack #21 ea Allergies Allergy/AdvReac Type Severity Reaction Status Date / Time Penicillins Allergy Severe Anaphylaxis Verified 12/02/22 22:36 Sulfa (Sulfonamide Allergy Verified 12/02/22 22:36 Antibiotics) Review of Systems Review of Systems ROS Unobtainable: All systems reviewed & are unremarkable except as noted in HPI and below Patient History Medical History (Updated 12/02/22 @ 23:34 by Anai Wilde DO) Pulmonary embolism Lung cancer Social History household members: family Smoking Status: Current every day smoker alcohol intake: former Smoking Status: Current every day smoker alcohol intake frequency: 0-2 drinks per day Substance Use Type: does not use and methamphetamine Exam Narrative Exam Narrative: GENERAL: Alert and oriented x three, elderly appearing male in moderate distress. HEENT: Head normocephalic, atraumatic, EOMI, pupils reactive, face symmetric, moist mucous membranes NECK: Supple, full range of motion CARDIOVASCULAR: Regular rate and rhythm without murmurs, rubs or gallops. RESPIRATORY: Breath sounds equal bilaterally, no wheezes rales or rhonchi. ABDOMEN: Soft, nontender. Normoactive bowel sounds all 4 quadrants. No guarding or rebound, rigidity, no mass : No CVA tenderness BACK: No cervical, thoracic or lumbar vertebral point tenderness. Patient does have tenderness with palpation over the piriformis left buttock. Patient has increased pain with forward flexion, patient also has increased pain with left leg raise. Patient's gait is antalgic. Rectal exam is deferred. Muscle strength is 5/5 in lower extremities, Dorsalis pedis and tibialis pulses are 2+ and lower extremities. Sensation is intact in the lower extremities. No swelling bilateral lower extremities. EXTREMITIES: Normal range of motion, no clubbing or edema. Neurovascularly intact. No redness, warmth or skin changes. NEUROLOGICAL: Cranial nerves II through XII grossly intact. Moving all extremities SKIN: Warm, dry, no petechiae, no rashes or lesions. Initial Vital Signs Initial Vital Signs: Vital Signs Temperature 98.4 F 12/02/22 22:30 Pulse Rate 90 12/02/22 22:30 Respiratory Rate 20 12/02/22 22:30 Blood Pressure 177/90 H 12/02/22 22:30 Pulse Oximetry 98 12/02/22 22:30 Oxygen Delivery Method Room Air 12/02/22 22:30 Course Orders Ordered: ED Orders 12/02/22 23:27 XR lumbar spine 2-3V Stat Discontinued Medications Diazepam (Diazepam 5 Mg Tablet) 10 mg PO NOW ONE Stop: 12/02/22 23:28 Last Admin: 12/02/22 23:48 Dose: 10 mg Documented By: OW Hydromorphone HCl (Hydromorphone 1 Mg Inj) 1 mg IM NOW ONE Stop: 12/02/22 23:28 Last Admin: 12/02/22 23:48 Dose: 1 mg Documented By: OW Hydromorphone HCl (Hydromorphone 1 Mg Inj) 1 mg IM NOW ONE Stop: 12/03/22 00:51 Last Admin: 12/03/22 01:05 Dose: 1 mg Oxycodone/Acetaminophen (Oxycodone/Apap 5/325 Prepack) 1 bottle MISC SEEINSTR ONE Stop: 12/03/22 00:51 Last Admin: 12/03/22 01:05 Dose: 1 bottle Vital Signs Vital signs: Vital Signs - 8 hr 12/02/22 22:30 12/02/22 23:00 Temperature 98.4 F Pulse Rate 90 80 Respiratory Rate 20 20 Blood Pressure 177/90 H 176/138 H Pulse Oximetry 98 98 Oxygen Delivery Method Room Air Room Air MDM - Extremity Injury (Lower) Imaging Data Extremity x-ray #1: Radiologist's Impression: [place] [address] XRay Report Signed Patient: Vladislav Cruz MR#: [id number] : 1960 Acct:[id number] Age/Sex: 62 / M Date of Service: 12/02/22 Loc: ED Accession Number: [id number] Procedure: XR knee LT 3V Ordering Provider: Anai Wilde D.O. PROCEDURE: XR KNEE LT 3V INDICATIONS: KNEE PAIN TECHNIQUE: 3 views of the knee were acquired. COMPARISON: None. FINDINGS: Bones: No fractures or dislocations. No suspicious bony lesions. Soft tissues: No joint effusion. No suspicious soft tissue calcifications. IMPRESSION: No visible acute fractures. If there is no improvement with conservative management, consider MRI. Dictated by: Katie Hunt M.D. on 12/03/2022 at 0:34 Approved by: Katie Hunt M.D. on 12/03/2022 at 0:36 Lumbar xray: Radiologist's Impression: [address] [address] XRay Report Signed Patient: Vladislav Cruz MR#: [id number] : 1960 Acct:[id number] Age/Sex: 62 / M Date of Service: 12/02/22 Loc: ED Accession Number: [id number] Procedure: XR lumbar spine 2-3V Ordering Provider: Anai Wilde D.O. PROCEDURE: XR LUMBAR SPINE 2-3V INDICATIONS: New back pain radiates down LT leg. TECHNIQUE: 3 views of the lumbar spine were acquired. COMPARISON: None. FINDINGS: Bones: 5 [id number] vertebrae are present. Severe multilevel disc height loss with endplate remodeling and spurring appears chronic. Incidental note made of chronic appearing anterior wedge deformity of T11. Trace retrolisthesis L2 on 3, L3 on 4. No vertebral body compression fractures. No suspicious bony lesions. Soft tissues: Overlying bowel gas pattern is normal. No suspicious soft tissue calcifications. IMPRESSION: 1. No acute process. 2. Multilevel degenerative disease, mainly affecting disc spaces. Dictated by: Katie Hunt M.D. on 12/03/2022 at 0:36 Approved by: Katie Hunt M.D. on 12/03/2022 at 0:38 MDM Narrative Medical decision making narrative: 62-year-old male with acute on chronic back pain with new radiation down his left leg after an episode of stepping over a gate and tweaking his back. No weakness, no bowel or bladder incontinence, patient has chronic paresthesias but does not appreciate worsening. Patient did have an incident where he sort of tweaked his back stepping over a gate which he thinks initiated this episode. He does have a history of cancer and appears quite painful so screening x-ray was obtained. Patient has degenerative changes with severe multilevel disc height loss appears chronic incidental note chronic appearing anterior wedge deformity of T11 trace retrolisthesis of L2 on 3, L3 on 4 no vertebral body compression fractures no suspicious bony lesions. Patient's knee x-ray shows no acute fractures no joint effusion. Patient was given a dose of IM narcotic pain medication and muscle relaxer. On recheck, patient has improvement but is still uncomfortable. Discussed findings with patient. Plan to continue patient's home methadone with additional oral pain medication for breakthrough pain, steroids and discussed adding gabapentin to see if this would be helpful for his pain management. Patient states he is had gabapentin up to 1500 mg 3 times daily without any improvement. We will have him continue his home methadone, oral narcotic pain medication and steroids. Patient feels comfortable with this plan. Also discussed follow up with either pain management in or spinal surgeries/neurosurgery. Referral given to both. Patient states he is had a nerve ablation in the past which was very helpful for his thoracic or cervical spine. Discussed return precautions. All questions answered. Patient ambulated in department with cane with minimal issues. Discharge Plan Departure Patient Disposition: Home Clinical Impression: Sciatica of left side Instructions: DI for Back Pain With Sciatica Activity Restrictions/Additional Instructions: Please follow up with your physician for recheck and for management of your pain medications. I would recommend following up either with pain management or spinal surgeon. Options are included for both. Call tomorrow morning to set up an appointment. You may continue your home pain medications as prescribed. You may take Tylenol up to a 1000 mg every 6 hours as needed. Take oral steroids until completed. For breakthrough pain you can take 1-2 tablets of oxycodone every 6 hours as needed. This medication can make you sleepy do not drive, perform hazardous activities or make any major decisions while taking it. This medication will make you constipated please take a stool softener once to twice daily until stools are soft and regular. Prescription sent to [facility] in [place]. Please return for fevers, rapidly worsening symptoms, new loss of bowel or bladder control, new weakness, loss of sensation, elevated lift or move your leg or other new or concerning changes. Prescriptions: New prednisone 10 mg tablets,dose pack See Rx Instructions .ROUTE .COMPLEX Qty: 21 0RF Rx Instructions: Take 6 tablets p.o. x1 day, then 5 tablets p.o. x1 day, then 4 tablets p.o. x1 day, then 3 tablets p.o. x1 day, then 2 tablets p.o. x1 day, then 1 tablet p.o. x1 day oxycodone 5 mg tablet 5 mg PO Q6H PRN (Reason: pain) Qty: 20 0RF No Action alprazolam [Xanax] 0.5 MG tablet 1 mg PO HS Qty: 0 albuterol sulfate [Proventil HFA] 90 MCG/PUFF HFA aerosol inhaler 2 puff INH PRN PRN (Reason: Shortness Of Breath) Qty: 8.5 ipratropium-albuterol 3 ML solution for nebulization 3 ml INH PRN Qty: 0 enoxaparin [Lovenox] 80 mg/0.8 mL syringe 80 mg SUBCUT Q12H Qty: 8 6RF primidone 50 mg tablet 200 mg PO DAILY lamotrigine 200 mg tablet 200 mg PO BID prazosin 1 mg capsule 1 mg PO DAILY sucralfate 1 gram tablet 1 g PO QID sertraline 100 mg tablet 100 mg PO DAILY lithium carbonate 150 mg capsule 450 mg PO BID ondansetron 8 mg tablet,disintegrating 8 mg PO Q8HR PRN (Reason: Nausea) lorazepam 0.5 mg tablet 0.5 mg PO DAILY PRN (Reason: Anxiety) benzonatate 100 mg capsule 100 mg PO TID pantoprazole 40 mg tablet,delayed release (DR/EC) 40 mg PO DAILY quetiapine 50 mg tablet 100 mg PO BID Symbicort 80-4.5 mcg/actuation HFA aerosol inhaler 2 puff INHALATION BID durvalumab 50 mg/mL Solution 50 mg IV SEEINSTR Rx Instructions: once every 2 weeks methadone 10 mg tablet 25 mg PO TID oxycodone-acetaminophen [Percocet] 5-325 mg tablet 2 tab PO Q4-6H PRN (Reason: pain) Qty: 60 0RF epinephrine 0.3 mg/0.3 mL auto-injector 0.3 mg IM Q5-15M PRN (Reason: anaphylaxis) Qty: 2 0RF Rx Instructions: do not exceed 3 doses per episode Referrals: Narehs Stafford DO [Physician] - France Sharp ARNP [Primary Care Provider] - Delvis Delaney MD [Physician] - Stand Alone Forms: Patient Portal/API
[2022-12-02 23:00] VITALS: BP 176/138; PULSE 80; RESP 20; O2SAT 98
--- NOTE | 2022-12-02 23:27 | DI.RAD.S_ITS ---
PROCEDURE: XR LUMBAR SPINE 2-3V INDICATIONS: New back pain radiates down LT leg. TECHNIQUE: 3 views of the lumbar spine were acquired. COMPARISON: None. FINDINGS: Bones: 5 [id number] vertebrae are present. Severe multilevel disc height loss with endplate remodeling and spurring appears chronic. Incidental note made of chronic appearing anterior wedge deformity of T11. Trace retrolisthesis L2 on 3, L3 on 4. No vertebral body compression fractures. No suspicious bony lesions. Soft tissues: Overlying bowel gas pattern is normal. No suspicious soft tissue calcifications. IMPRESSION: 1. No acute process. 2. Multilevel degenerative disease, mainly affecting disc spaces. Dictated by: Katie Hunt M.D. on 12/03/2022 at 0:36 Approved by: Katie Hunt M.D. on 12/03/2022 at 0:38
[2022-12-02] MEDS: HYDROMORPHONE 1 MG INJ IM (23:48)
[2022-12-02] MEDS: diazePAM 5 MG TABLET 10 MG PO (23:48)
[2022-12-03] MEDS: HYDROMORPHONE 1 MG INJ IM (01:05)
[2022-12-03] MEDS: OXYCODONE/APAP 5/325 PREPACK 1 BOTTLE MISC (01:05)
[2022-12-03 02:00] VITALS: BP 170/83; PULSE 70; RESP 20; O2SAT 100
== END 2022-12-03 02:35 | disposition home or self-care (01) ==
PROVIDERS: Emergency Provider Emergency Medicine; PCP Nurse Practitioner
DX: M54.42 Lumbago with sciatica, left side (principal)
CPT/HCPCS: 72100; 73562; 96372; 99283; 99284; J1170

== ENCOUNTER 2023-11-16 10:50 | Emergency (ER) | payer MEDICARE, MEDICAID, SELFPAY ==
[2023-11-16 11:06] VITALS: BP 145/84; PULSE 87; RESP 17; TEMP 37.2; O2SAT 98; BMI 21.7
[2023-11-16 11:43] LABS: Add Manual Diff / Slide Review NO; Basophils Absolute Auto 0 /uL (0-100); Basophils Percent Auto 0.4 % (0-2); Eosinophils Absolute Auto 100 /uL (0-450); Eosinophils Percent Auto 0.7 % (2-4); Hematocrit 34.7 % (41-53); Hemoglobin 11.4 g/dL (13.5-17.5); Lymphocytes Absolute Auto 700 /uL (1100-4500); Lymphocytes Percent Auto 8.6 % (25-40); Mean Corpuscular HGB Conc 32.9 % (30-36); Mean Corpuscular Hemoglobin 28.7 PG (26-34); Mean Corpuscular Volume 87.3 fL (80-100); Monocytes Absolute Auto 300 /uL (0-900); Monocytes Percent Auto 3.9 % (3-14); Neutrophils Absolute Auto 7300 /uL (1500-7000); Neutrophils Percent Auto 86.4 % (50-75); Platelet Count 378 X10^3/uL (150-400); Red Blood Cell Count 3.97 X10^6/uL (4.5-5.9); Red Cell Distribution Width 14.2 % (11.6-14.8); White Blood Cell Count 8.4 X10^3/uL (4.5-11.0)
[2023-11-16 11:53] LABS: Acetaminophen < 10 ug/mL (10-30); Alanine Aminotransferase 23 IU/L (<50); Albumin 4.2 g/dL (3.5-5.0); Albumin Globulin Ratio 1.5 (1.0-2.8); Alkaline Phosphatase 122 U/L (38-126); Aspartate Aminotransferase 37 IU/L (17-59); BUN Creatinine Ratio 20.6 (6-22); Bilirubin Total 0.6 mg/dL (0.2-1.3); Blood Urea Nitrogen 14 mg/dL (9-20); Carbon Dioxide 22 mmol/L (22-32); Chloride 106 mmol/L (98-107); Estimated Glomerular Filt Rate > 60 mL/min (>60); Ethanol (ETOH) < 10 mg/dL; Globulin 2.8 g/dL (1.7-4.1); Glucose 174 mg/dL (80-110); HEMOLYSIS < 15 (0-50); Potassium 3.6 mmol/L (3.4-5.1); Salicylate < 1.0 mg/dL (<20); Sodium 137 mmol/L (137-145)
[2023-11-16 11:58] LABS: Ictotest Urine Negative (Negative)
[2023-11-16 12:00] LABS: UR Morphine/Opiate cutoff 300 Negative (Negative); Ur Creatinine Normal (Normal); Ur Specific Gravity Normal (Normal); Urine Cocaine Negative (Negative); Urine Tetrahydrocannabinol Negative (Negative); Urine pH Normal (Normal)
[2023-11-16 12:02] LABS: Urine Amphetamines Positive (Negative)
[2023-11-16 12:03] LABS: Urine Barbiturates Negative (Negative); Urine Benzodiazepines Positive (Negative); Urine MDMA Negative (Negative); Urine Methadone Positive (Negative); Urine Methamphetamines Positive (Negative); Urine Oxycodone Negative (Negative); Urine Phencyclidine Negative (Negative); Urine Tricyclic Antidepressant Positive (Negative)
[2023-11-16 12:05] LABS: Amorphous Sediment Urine 2+; Bacteria Urine None Seen; Calcium Oxalate Crystals Urine Many; Culture Indicated Urine Cult Not Indicated; Mucus Urine 2+ (Negative); RBC Urine None Seen (0-5/HPF); Squamous Epithelial Cell Urine None Seen (0-5/HPF); Urine Volume 10mL (spun); WBC Urine None Seen (0-5/HPF)
[2023-11-16 12:17] LABS: Lithium 0.9 mmol/L (0.6-1.2)
--- NOTE | 2023-11-16 12:17 | ED.PSYCH ---
HPI - Psych General Chief Complaint: Psychiatric Symptoms Stated Complaint: PARANOIA Time Seen by Provider: 11/16/23 11:31 Source: patient and family Mode of arrival: Ambulatory History of Present Illness HPI Narrative: Patient is 63-year-old male history of bipolar methamphetamine use presenting today with hallucinations. Lives with a son tenderness been giving him medications he is for the last 3-5 days reports visual and audio hallucinations. Patient denies any suicidal or homicidal ideations. Son is at bedside reports that patient did not take his regular psych meds this morning that he wants him strict. He reports seeing skin issues on his hands. He is noted to have some tremors which son says is normal for him. The patient admits to using methamphetamines about 3 days ago but does not use any today. Patient has previously been hospitalized in 2021 for something similar Related Data Home Medications Medication Instructions Recorded Confirmed albuterol sulfate 90 mcg/actuation 2 puff INH PRN PRN Shortness Of 05/24/11 11/16/23 aerosol inhaler (Proventil HFA) Breath ##8.5 alprazolam 0.5 mg tablet (Xanax) 1 mg PO TID ##0 05/24/11 11/16/23 ipratropium 0.5 mg-albuterol 3 mg 3 ml INH PRN ##0 05/24/11 11/16/23 (2.5 mg base)/3 mL nebulization soln budesonide-formoterol HFA 80 2 puff inhalation BID 01/23/19 11/16/23 mcg-4.5 mcg/actuation aerosol inhaler (Symbicort) lamotrigine 200 mg tablet 200 mg PO BID 01/23/19 11/16/23 lithium carbonate 150 mg capsule 450 mg PO BID 01/23/19 11/16/23 methadone 10 mg tablet 25 mg PO TID 01/23/19 11/16/23 sertraline 100 mg tablet 100 mg PO BID 01/23/19 11/16/23 Previous Rx's Medication Instructions Recorded epinephrine 0.3 mg/0.3 mL 0.3 mg (0.3 mL) IM Q5-15M PRN 10/01/22 injection, auto-injector anaphylaxis #2 ea Allergies Allergy/AdvReac Type Severity Reaction Status Date / Time Penicillins Allergy Severe Anaphylaxis Verified 11/16/23 11:05 bee venom protein (honey bee) Allergy Verified 11/16/23 11:05 Sulfa (Sulfonamide Allergy Verified 11/16/23 11:05 Antibiotics) Patient History Medical History (Updated 11/16/23 @ 13:23 by Corrie Cr DO) Pulmonary embolism Lung cancer Social History household members: family Smoking Status: Current every day smoker alcohol intake: former Smoking Status: Current every day smoker alcohol intake frequency: 0-2 drinks per day Substance Use Type: does not use and methamphetamine Exam Initial Vital Signs Initial Vital Signs: Vital Signs Temperature 98.9 F 11/16/23 11:06 Pulse Rate 87 11/16/23 11:06 Respiratory Rate 17 11/16/23 11:06 Blood Pressure 145/84 H 11/16/23 11:06 Pulse Oximetry 98 11/16/23 11:06 Oxygen Delivery Method Room Air 11/16/23 11:06 GENERAL: Alert slightly disheveled 63-year-old male appears older than stated age CARDIOVASCULAR: peripheral pulses in tact, cap refill <2 sec RESPIRATORY: No respiratory distress, speaks in full sentences without difficulty EXTREMITIES: Normal range of motion, no clubbing or edema. Neurovascularly intact NEUROLOGICAL: Cranial nerves II through XII grossly intact. Normal gait and speech. Resting tremor SKIN: Warm, dry, no petechiae, no rashes or lesions. 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 Stat 11/16/23 11:36 Acetaminophen Stat Complete Blood Count AUTO DIFF Stat Comprehensive Metabolic Panel Stat Ethanol (ETOH) Stat Free T4, Direct Thyroxine Stat [place] Stat Salicylate Stat Thyroid Stimulating Hormone Stat 11/16/23 11:40 Ictotest Urine Stat Urine Drug Screen, Rapid Stat Urine Microscopic Stat Discontinued Medications Olanzapine (Olanzapine Odt 10 Mg Tab) 20 mg PO NOW ONE Stop: 11/16/23 13:15 Last Admin: 11/16/23 13:24 Dose: 20 mg Documented By: MICHAEL Vital Signs Vital signs: Vital Signs - 8 hr 11/16/23 11:06 11/16/23 13:32 Temperature 98.9 F Pulse Rate 87 61 Respiratory Rate 17 16 Blood Pressure 145/84 H 149/95 H Pulse Oximetry 98 96 Oxygen Delivery Method Room Air Room Air MDM - Psych Lab Data 11/16/23 11:36 11/16/23 11:36 Labs: Lab Results 11/16/23 11/16/23 Range/Units 11:36 11:40 WBC 8.4 (4.5-11.0) X10^3/uL RBC 3.97 L (4.5-5.9) X10^6/uL Hgb 11.4 L (13.5-17.5) g/dL Hct 34.7 L (41-53) % MCV 87.3 (80-100) fL MCH 28.7 (26-34) PG MCHC 32.9 (30-36) % RDW 14.2 (11.6-14.8) % Plt Count 378 (150-400) X10^3/uL Neut % (Auto) 86.4 H (50-75) % Lymph % (Auto) 8.6 L (25-40) % Emanuel % (Auto) 3.9 (3-14) % Eos % (Auto) 0.7 L (2-4) % Baso % (Auto) 0.4 (0-2) % Neut # (Auto) 7300 H (1864-1171) /uL Lymph # (Auto) 700 L (0485-4881) /uL Emanuel # (Auto) 300 (0-900) /uL Eos # (Auto) 100 (0-450) /uL Baso # (Auto) 0 (0-100) /uL Sodium 137 (137-145) mmol/L Potassium 3.6 (3.4-5.1) mmol/L Chloride 106 (98-107) mmol/L Carbon Dioxide 22 (22-32) mmol/L BUN 14 (9-20) mg/dL Creatinine 0.68 (0.66-1.25) mg/dL Estimated GFR > 60 (>60) mL/min BUN/Creatinine Ratio 20.6 (6-22) Glucose 174 H (80-110) mg/dL Calcium 9.0 (8.4-10.2) mg/dL Total Bilirubin 0.6 (0.2-1.3) mg/dL AST 37 (17-59) IU/L ALT 23 (<50) IU/L Alkaline Phosphatase 122 (38-126) U/L Total Protein 7.0 (6.3-8.2) g/dL Albumin 4.2 (3.5-5.0) g/dL Globulin 2.8 (1.7-4.1) g/dL Albumin/Globulin Ratio 1.5 (1.0-2.8) TSH 0.668 (0.47-4.68) uIU/mL Free T4 1.40 (0.78-2.19) ng/dL Ur Bilirubin Confirm Negative (Negative) Urine RBC None seen (0-5/HPF) Urine WBC None seen (0-5/HPF) Ur Squamous Epith Cells None seen (0-5/HPF) Calcium Oxalate Crystal Many H Amorphous Sediment 2+ Urine Bacteria None seen (None) Urine Mucus 2+ H (Negative) Ur Culture Indicated? Cult not indicated Vol Urine Centrifuged 10ml (spun) Salicylates < 1.0 (<20) mg/dL U Opiates 300ng/mL cut Negative (Negative) Ur Oxycodone Screen Negative (Negative) Urine Methadone Screen Positive H (Negative) Acetaminophen < 10 (10-30) ug/mL Ur Barbiturates Screen Negative (Negative) U Tricyclic Antidepress Positive H (Negative) Ur Phencyclidine Scrn Negative (Negative) Ur Amphetamines Screen Positive H (Negative) U Methamphetamines Scrn Positive H (Negative) Ur MDMA Scrn (Ecstasy) Negative (Negative) U Benzodiazepines Scrn Positive H (Negative) [place] 0.9 (0.6-1.2) mmol/L Urine Cocaine Screen Negative (Negative) U Marijuana (THC) Screen Negative (Negative) Urine pH Normal (Normal) Urine Specific [place] Normal (Normal) Ethyl Alcohol < 10 ( - 10) mg/dL Ur Creatinine Normal (Normal) Urine Dip Bedside Urine Glucose Negative Bedside Urine Bilirubin + 1 Bedside Urine Ketone +/- 5 Urine Specific [place] 1.025 Bedside Urine Occult Blood - Negative Bedside Urine pH 6.0 Bedside Urine Protein + 30 Bedside Urine Urobilinogen - Negative Bedside Urine Nitrite - Negative Bedside Urine Leukocytes +/- 15 Esterase MDM Narrative Medical decision making narrative: 63-year-old male history of methamphetamine abuse chronic methadone user history of bipolar presenting today with audio visual hallucinations. Most likely related to his recent methamphetamine use Blood work has been reviewed no significant abnormality urine tox screen positive for methadone tricyclic amphetamines methamphetamines Alcohol level is negative Patient has been evaluated by social work. She is arranged for outpatient follow-up. Patient no longer wants inpatient treatment. He meets no involuntary criteria. Son is at bedside who lives with him He was given a dose of Zyprexa in the ED to help with some of the hallucinations Discharge Plan Departure Patient Disposition: Home Clinical Impression: Hallucinations Activity Restrictions/Additional Instructions: *You have been diagnosed with hallucinations *What to do: At this time I think hallucinations or due to your methamphetamine use. Please do not use methamphetamine. Follow up with outpatient treatment as set up with social work today *Continue to take medications as directed *Follow up with your primary care provider in 2-3 days or call [phone] *Return to ER if you should have increasing hallucinations inability to care for self thoughts of self-harm or any new, worsening or concerning symptoms Prescriptions: No Action alprazolam [Xanax] 0.5 MG tablet 1 mg PO TID Qty: 0 albuterol sulfate [Proventil HFA] 90 MCG/PUFF HFA aerosol inhaler 2 puff INH PRN PRN (Reason: Shortness Of Breath) Qty: 8.5 ipratropium-albuterol 3 ML solution for nebulization 3 ml INH PRN Qty: 0 lamotrigine 200 mg tablet 200 mg PO BID sertraline 100 mg tablet 100 mg PO BID lithium carbonate 150 mg capsule 450 mg PO BID budesonide-formoterol [Symbicort] 80-4.5 mcg/actuation HFA aerosol inhaler 2 puff INHALATION BID methadone 10 mg tablet 25 mg PO TID epinephrine 0.3 mg/0.3 mL auto-injector 0.3 mg IM Q5-15M PRN (Reason: anaphylaxis) Qty: 2 0RF Rx Instructions: do not exceed 3 doses per episode Referrals: France Sharp ARNP [Primary Care Provider] - Stand Alone Forms: Patient Portal/API
[2023-11-16 12:52] LABS: Thyroid Stimulating Hormone 0.668 uIU/mL (0.47-4.68)
[2023-11-16] MEDS: OLANZapine ODT 10 MG TAB 20 MG PO (13:24)
--- NOTE | 2023-11-16 13:26 | PC.NURSE ---
Pt denies feelings of SI/HI
--- NOTE | 2023-11-16 13:31 | PC.NURSE ---
pt endorses meth use. states he started to use it after his
[2023-11-16 13:32] VITALS: BP 149/95; PULSE 61; RESP 16; O2SAT 96
--- NOTE | 2023-11-16 13:50 | CM.SWNOTE ---
ED ELECTRICAL JOURNEYMAN Assessment Note: ELECTRICAL JOURNEYMAN - Helicopter Dispatcher Assessment ELECTRICAL JOURNEYMAN/Helicopter Dispatcher Assessment Mental Health Screening Include Onset, Duration, Intensity Presenting Problem Patient explains he has been seeing things for the past 3- 5 days. Patient explains he used methamphetamines in the last 3-5 days as well. Precipitating Event(s) Patient explained he has been paranoid about his neighbors who lives behind them. He explained he sees a large tray from their barbeque and believes they are using it for cremation. Patient explains the hallucinations are crushing my life. Patient Strengths Patient is supported by his son, Oumar, and is communicative as much as possible. Current Behavioral Health Provider(s) Patient does not currently see Include Facility, Provider, Ph. # anyone for Mental Health. Patient obtains all of his psychiatric medications from his Palliative Care provider and Primary Care Provider. Psych. Hx Mental Health and Chemical Patient has a previous medical Dependency history of bipolar disorder, polysubstance use. Family Hx of Behavioral Abuse None reported. Psychiatric Hospitalizations (date(s)/ Patient has a documented location) inpatient stay at [facility] in 09/2021. Psychosocial information & Support Patient is a 63yo male, Systems resident of [place] and lives with his son, Oumar. Patient is disabled and does not work. School/Work Patient is disabled and does not work. Legal Concerns Legal Matters - Outstanding Issues None reported. Mental Status Orientation (Person/Place/Time) AOx3 Stated Mood apprehensive Affect (Congruent with Mood?) Congruent with mood Thought Content - Specify/Describe Patient reports having visual Obsessions, Delusions, Hallucinations hallucinations that include his neighbors. He explains he sees his neighbors utilizing a big tray with the barbeque that they use for cremation. Patient explained he is afraid his son will also be hurt by his neighbors but could not elaborate as to why. 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 Thought Processes (Cdmbykp-Garnfbyh-Hlix Circumstantial, disorganized Onxzsrao-Sojctoyp-Qybelyjrov- Lrttxvhywtdgpu-Offevje-Casuijwwwbsc- Thought Blocking) Speech (Vbujue-Pces-Yqagfkd-Rapid-Soft- Slurred, pressured Loud-Pressured) Motor (Dxxtno-Vtaopipba-Fcxy-Other) Excessive, tremulous Insight (Vqeo-Uctm-Nltg/Limited) Fair/limited - Patient understands that he needs to cease use of methamphetamines and was ready for inpatient treatment but suddenly changed his mind. I know not going will hurt (son) but I am just not ready yet. Judgement (Zamn-Ddzr-Ogto/Limited) Fair/limited Impulse Control (Adequate-Impaired) Adequate Memory (Hwwwpffsg-Wroftr-Oqqzsu, Immediate Impaired-Intact) Concentration (Intact-Impaired) Intact Attention (Intact-Impaired) Intact Behavior (Appropriate-Inappropriate) Appropriate Additional Comment Patient is calm and cooperative during this assessment. Risk Assessment Suicidal Ideation (Plan) No Homicidal Ideation (Plan) No Intervention Intervention Reviewed chart and team rounds for pt's medical status and initial discharge needs. Per windows infrastructure engineer, pt is seeking medical clearance for referral to inpatient treatment and stated clearly in triage that he is not experiencing SI/HI. ELECTRICAL JOURNEYMAN called [facility], [facility], and [facility] and all reported to have beds available for referral. ELECTRICAL JOURNEYMAN meets with patient. Patient reports visual hallucinations which have been impeding on his daily life. Patient explains recent use of methamphetamines (last 3-5 days). Patient and son report that patient has not taken his psych medications today. Patient identifies that he does need to stop using but now does not want to go to treatment. ELECTRICAL JOURNEYMAN clarified with patient that inpatient treatment at this time would assist with stabilizing patient to get back to baseline. Patient declined referral to inpatient treatment three times during assessment. At this time, it is the opinion of this ELECTRICAL JOURNEYMAN that patient would benefit from inpatient psychiatric hospitalization for SI. Due to patient's declination to referral and no SI risk, patient was able to safety plan with this ELECTRICAL JOURNEYMAN. Patient will continue to take medications as prescribed with the direct supervision of his son. Patient will also continue to collaborate with Palliative Care Provider (ARLETTE Fairbanks) and Primary Care Provider (ARLETTE Pereira) . Patient agreed to outpatient MH/NAYELI treatment. Patient will attend a psychiatric/NAYELI evaluation at [facility], coordinated by this ELECTRICAL JOURNEYMAN. Appointment scheduled for November 25, 2023 at 10:00am at [facility]. Clinic handout and appointment time provided for patient. ELECTRICAL JOURNEYMAN informs ED provider, Dr. Cr, who indicates agreement. ELECTRICAL JOURNEYMAN informs ANT Noriega. Plan RA Plan Patient to discharge with son, follow up with [facility] for MH/NAYELI outpatient treatment on November 25, 2023 at 10:00am. ZULEMA Berkowitz
== END 2023-11-16 13:33 | disposition home or self-care (01) ==
PROVIDERS: Emergency Provider Emergency Medicine; PCP Nurse Practitioner
DX: R44.0 Auditory hallucinations (principal); R44.1 Visual hallucinations
CPT/HCPCS: 80053; 80178; 80305; 80320; 80329; 81003; 81015; 84439; 84443; 85025; 99283; G0480